=== PATIENT | male | born 1960 | race Caucasian/White ===

== ENCOUNTER 2016-09-27 10:42 | Emergency (ER) | payer OTHER ==
[~2016-09-27] VITALS: Ht 157.5 cm; Wt 86.0 kg
[2016-09-27 10:48] VITALS: Ht 157.5 cm; Wt 86.0 kg
[2016-09-27] MEDS ORDERED: SOD CHLORIDE 0.9% 1,000 ML IV ONE (14:00)
[2016-09-27] MEDS ORDERED: IBUPROFEN 600 MG TAB PO ONE (14:00)
--- NOTE | 2016-09-27 14:02 | ERD ---
ER Documentation Chief Complaint Date/Time DATE: 09/27/16 TIME: 13:59 Chief Complaint SENT BY PCP - INCREASED BLOOD SUGAR LEVEL, FEVER, INCREASED HEART RATE HPI 56-year-old man here for fever 2 days, referred by PMD for tachycardia. He denies palpitations, denies URI symptoms, no chest pain or shortness of breath, no meatal discharge, no hematuria, no abdominal pain, no vomiting or diarrhea. Patient denies recent antibiotic use or travel. ROS All systems reviewed and are negative except as per history of present illness. Medications Home Meds Active Scripts Levofloxacin* (Levaquin*) 500 Mg Tablet, 500 MG PO DAILY for 5 Days, TAB Prov:JULIANN AARON MD 09/27/16 Allergies Allergies: Coded Allergies: No Known Allergy (Unverified , 09/27/16) PMhx/Soc Hypertension, diabetes mellitus, dyslipidemia, obesity FmHx Family History: diabetes Physical Exam Vitals Vital Signs Date Time Temp Pulse Resp B/P Pulse Ox O2 Delivery O2 Flow Rate FiO2 09/27/16 15:46 95 24 121/79 96 09/27/16 14:40 99 24 119/44 96 09/27/16 10:48 100.7 125 24 127/68 96 Physical Exam GENERAL: Well-developed, well-nourished, febrile HEENT: Moist mucous membranes, pink conjunctiva, no cervical spine tenderness or step-off deformities, no goiter, no jaundice or icterus, extraocular movements intact without pain. No submandibular induration, and no pharyngeal erythema NEURO: Alert and oriented 3, cranial nerves II through XII intact bilaterally, pupils equal round reactive to light, no focal deficits or facial asymmetry, sensation intact distally Strength 5/5 in upper and lower extremities bilaterally CARDIAC: Tachycardic and regular, no murmurs rubs or gallops LUNGS: Clear bilaterally no wheezing crackles or stridor ABDOMEN: Soft nontender, no guarding, no rigidity, no rebound, no psoas sign no obturator sign. Normoactive bowel sounds SKIN: Warm and dry to touch, no abrasions, contusions, or hematomas, no lacerations, no ecchymosis, no target lesions, and without ulcers EXTREMITIES: No clubbing cyanosis or edema, calves are bilaterally symmetrical, no Homans sign, no popliteal cord sign. Distal pulses equal and bilateral PSYCH: Normal affect without agitation or irritability Result Diagram: 09/27/16 1345 09/27/16 1345 Results 24 hrs Laboratory Tests Test 09/27/16 13:40 09/27/16 13:45 Urine Color LT. YELLOW Urine Clarity CLEAR Urine pH 5.5 Urine Specific [place] 1.010 Urine Ketones TRACE Urine Nitrite NEGATIVE Urine Bilirubin NEGATIVE Urine Urobilinogen 0.2 E.U./dL Urine Leukocyte Esterase 1+ Urine Microscopic RBC 5-10/HPF Urine Microscopic WBC 10-25/HPF Urine Bacteria MODERATE Urine Hemoglobin 2+ Urine Glucose >=1000% Urine Total Protein TRACE White Blood Count 15.110^3/ul Red Blood Count 4.0410^6/ul Hemoglobin 12.0g/dl Hematocrit 35.7% Mean Corpuscular Volume 88.4fl Mean Corpuscular Hemoglobin 29.7pg Mean Corpuscular Hemoglobin Concent 33.6g/dl Red Cell Distribution Width 12.9% Platelet Count 58134^3/UL Mean Platelet Volume 9.3fl Neutrophils % 75.5% Lymphocytes % 13.4% Monocytes % 10.2% Eosinophils % 0.1% Basophils % 0.3% Nucleated Red Blood Cells % 0.0/100WBC Neutrophils # 11.410^3/ul Lymphocytes # 2.010^3/ul Monocytes # 1.510^3/ul Eosinophils # 0.010^3/ul Basophils # 0.010^3/ul Nucleated Red Blood Cells # 0.010^3/ul Prothrombin Time 14.0Sec Prothrombin Time Ratio 1.1 INR International Normalized Ratio 1.08 Activated Partial Thromboplast Time 30.1Sec Sodium Level 135mmol/L Potassium Level 4.7mmol/L Chloride Level 95mmol/L Carbon Dioxide Level 25mmol/L Anion Gap 20 Blood Urea Nitrogen 21mg/dl Creatinine 1.15mg/dl Glucose Level 303mg/dl Lactic Acid Level 1.4mmol/L Calcium Level 9.6mg/dl Total Bilirubin 0.3mg/dl Direct Bilirubin 0.00mg/dl Indirect Bilirubin 0.3mg/dl Aspartate Amino Transf (AST/SGOT) 31IU/L Alanine Aminotransferase (ALT/SGPT) 37IU/L Alkaline Phosphatase 60IU/L Troponin I 0.050ng/ml Total Protein 7.2g/dl Albumin 4.3g/dl Globulin 2.90g/dl Albumin/Globulin Ratio 1.48 Lipase 69U/L Current Medications Medications (Trade) Dose Ordered Sig/Melissa Route PRN Reason Start Time Stop Time Status Last Admin Dose Admin Sodium Chloride (NS) 1,000 ml @ 2,000 mls/hr Q30M ONCE IV 09/27/16 14:00 09/27/16 14:29 DC 09/27/16 14:03 Ibuprofen 600 mg 600 mg ONCE ONCE PO 09/27/16 14:00 09/27/16 14:01 DC 09/27/16 14:03 Ceftriaxone Sodium (Rocephin) 50 ml @ 100 mls/hr ONCE ONCE IVPB 09/27/16 15:00 09/27/16 15:29 DC 09/27/16 14:59 Insulin Human Lispro 8 unit 8 unit ONCE STAT SC 09/27/16 15:28 09/27/16 15:30 DC 09/27/16 15:39 Sodium Chloride (NS) 500 ml @ 500 mls/hr Q1H ONCE IV 09/27/16 15:30 09/27/16 16:29 09/27/16 15:37 Procedures/MDM IV line was established patient was placed on telemetry monitor rhythm strip revealed a sinus tachycardia at 110 bpm with upright P and T waves. Patient was febrile. Blood and urine cultures have been ordered results are pending I will follow-up. EKG performed, read by me revealed a sinus tachycardia at 106 bpm, left axis deviation with a right bundle branch block, QRS duration 140 ms, no concerning ST elevations or depressions noted. Chest X-ray 1V Interpreted by me: Soft Tissue: No acute abnormalities Bones: No acute abnormalities Mediastinum/Cardiac Silhouette/Lungs: No acute abnormalities I do not suspect sepsis or septic shock. I treated the patient here with 2 L normal saline intravenously, ibuprofen 600 mg p.o., lispro insulin 6 units subcutaneous injection for hyperglycemia. Lactic acid was low. CBC revealed leukocytosis of 15, electrolytes revealed dehydration with a BUN/creatinine of 21/1.2, blood sugar elevated at 303, liver function tests were normal, troponin was negative. Urine analysis was positive for infection. I treated the patient here with ceftriaxone 1 g IV. Patient defervesced and his tachycardia resolved, blood sugar improved. He has an active UTI which can be managed as an outpatient, patient feels much better and looks well. I spoke to his hospital directed physician, Dr. Paulson. We discussed the case and recommendation was for outpatient management, she agreed to coordinate care as an outpatient for him. Differential diagnoses considered, included but not limited to acute coronary syndrome, pulmonary embolism, aortic dissection, abdominal aortic aneurysm, sepsis, stroke, meningitis, encephalitis, pneumonia, appendicitis, cholecystitis , bowel obstruction, pyelonephritis, nephrolithiasis, cystitis, as well as metabolic, hematologic, and electrolyte abnormalities. As well as abscess, cellulitis, fractures, and dislocations. Patient feels much better at this time, and vital signs are normal, symptoms have improved. I did give strict instructions to return to the ED if symptoms continue or worsen, patient will otherwise follow-up with primary care physician. Patient understood instructions and agreed to plan. Disclaimer: Inadvertent spelling or grammatical errors are likely due to EHR/ dictation software use and do not reflect on the overall quality of patient care. Departure Diagnosis: Primary Impression: Hyperglycemia Additional Impressions: UTI (urinary tract infection) Urinary tract infection type: acute cystitis Hematuria presence: without hematuria Qualified Code: N30.00 - Acute cystitis without hematuria Dehydration Lymphocytosis Condition: Good JULIANN AARON MD Sep 27, 2016 14:02
[2016-09-27 14:03] LABS: ADD SCAN DIFF NO
[2016-09-27 14:05] LABS: ABNORMAL IP MESSAGE 1; BASOPHILS % 0.3 % (0.0-2.0); EOSINOPHILS % 0.1 % (0.0-7.0); HEMATOCRIT 35.7 % (42.0-52.0); LYMPHOCYTES % 13.4 % (15.0-51.0); MEAN CORPUSCULAR HEMOGLOBIN 29.7 pg (29.0-33.0); MEAN CORPUSCULAR HGB CONC 33.6 g/dl (32.0-37.0); MEAN CORPUSCULAR VOLUME 88.4 fl (82.0-101.0); MEAN PLATELET VOLUME 9.3 fl (7.4-10.4); MONOCYTE # 1.5 10^3/ul (0.3-0.9); MONOCYTES % 10.2 % (0.0-11.0); NEUTROPHIL # 11.4 10^3/ul (1.6-7.5); NEUTROPHILS % 75.5 % (39.0-77.0); PLATELET COUNT 364 10^3/UL (140-415); RED BLOOD COUNT 4.04 10^6/ul (4.70-6.10); RED CELL DISTRIBUTION WIDTH 12.9 % (11.5-14.5); WHITE BLOOD COUNT 15.1 10^3/ul (4.8-10.8)
--- NOTE | 2016-09-27 14:05 | RADRPT ---
PROCEDURE: XR Chest. CLINICAL INDICATION: chest pain, sepsis TECHNIQUE: Single frontal view of the chest was obtained COMPARISON: None FINDINGS: The heart and mediastinum are within normal limits. There is elevation of the right diaphragm. The lungs are clear. There is no pleural effusion or pneumothorax. RPTAT: AA IMPRESSION: No acute disease. .Raul Correia MD, MD Date Time Electronically viewed and signed by .Raul Correia MD, on 09/27/2016 14:05 .S/
[2016-09-27 14:07] LABS: ADD UMIC YES; URINE BILIRUBIN (Dip) NEGATIVE (NEGATIVE); URINE BLOOD (Dip) 2+ (NEGATIVE); URINE COLOR LT. YELLOW (YELLOW); URINE GLUCOSE (Dip) >=1000 % (NEGATIVE); URINE KETONES (Dip) TRACE (NEGATIVE); URINE LEUKOCYTE ESTERASE (Dip) 1+ (NEGATIVE); URINE NITRITE (Dip) NEGATIVE (NEGATIVE); URINE TOTAL PROTEIN (Dip) TRACE (NEGATIVE); URINE UROBILINOGEN (Dip) 0.2 E.U./dL (0.1-1.0)
[2016-09-27 14:16] LABS: BACTERIA,URINE MODERATE
[2016-09-27 14:21] LABS: INR 1.08; PT RATIO 1.1
[2016-09-27 14:22] LABS: PARTIAL THROMBOPLASTIN TIME 30.1 Sec (25.0-35.0)
[2016-09-27 15:00] LABS: ALBUMIN 4.3 g/dl (3.3-4.9); ALBUMIN/GLOBULIN RATIO 1.48; BILIRUBIN,INDIRECT 0.3 mg/dl (0-1.1); BILIRUBIN,TOTAL 0.3 mg/dl (0.2-1.3); CALCIUM 9.6 mg/dl (8.4-10.2); CREATININE 1.15 mg/dl (0.61-1.24); POTASSIUM 4.7 mmol/L (3.5-5.1); TOTAL PROTEIN 7.2 g/dl (6.1-8.1)
[2016-09-27] MEDS ORDERED: CEFTRIAXONE 1 GM/50 ML (PMX) 50 ML IVPB ONE (15:00)
[2016-09-27 15:12] LABS: TROPONIN-I 0.05 ng/ml (0.00-0.12)
[2016-09-27] MEDS ORDERED: LEVO500T72 PO (15:26)
[2016-09-27] MEDS ORDERED: INSULIN LISPRO 100 UNIT/ML VIAL SC STA (15:28)
[2016-09-27] MEDS ORDERED: SOD CHLORIDE 0.9% 500 ML IV ONE (15:30)
[2016-09-27 16:18] VITALS: BP 117/82; PULSE 94; RESP 20; TEMP 98.6
== END 2016-09-27 16:19 | disposition home or self-care (01) ==
LOC: E/R 10:42
DX: E11.65 Type 2 diabetes mellitus with hyperglycemia (principal); N30.00 Acute cystitis without hematuria; E86.0 Dehydration; D72.820 Lymphocytosis (symptomatic); I10 Essential (primary) hypertension; E66.9 Obesity, unspecified; R07.9 Chest pain, unspecified; Z68.34 Body mass index [BMI] 34.0-34.9, adult
CPT/HCPCS: 36415; 71010; 80053; 81001; 83605; 83690; 84484; 85025; 85610; 85730; 87040; 87086; 93005; 96372; 96374; J0696; J1815; J7030; J7040; Z7502; Z7610

== ENCOUNTER 2016-11-02 18:35 | Inpatient (IN) | payer OTHER ==
[~2016-11-02] VITALS: Ht 165.1 cm; Wt 85.0 kg
[~2016-11-02 18:35] MED LIST: LEVO500T72 PO
[2016-11-02] MEDS ORDERED: CEFEPIME 2GM/50 ML (PMX) 50 ML IVPB STA (20:12)
[2016-11-02] MEDS ORDERED: SODIUM CHLORIDE 0.9% 1L BAG IV* STA (20:12)
--- NOTE | 2016-11-02 20:35 | ERA ---
ER Documentation Chief Complaint Date/Time DATE: 11/02/16 TIME: 20:33 Chief Complaint fever for 2 weeks and hi blood sugar UTI 2 weeks ago HPI This 56-year-old male presents for feelings of frequent urination, generalized weakness, fevers and high sugar. Denies chest pain. States he does have bilateral shoulder pain going on for some time now. Was diagnosed with urinary tract infection 2 weeks ago. ROS All systems reviewed and are negative except as per history of present illness. Medications Home Meds Reported Medications [Insulin] No Conflict Check, 10 UNIT SQ QHS 11/02/16 Omeprazole* (Omeprazole*) 40 Mg Capsule.dr, 40 MG PO DAILY, #30 CAP 11/02/16 Terbinafine* (Lamisil*) 250 Mg Tablet, 250 MG PO DAILY, TAB 11/02/16 Diclofenac Sodium* (Diclofenac Sodium*) 75 Mg Tablet.dr, 75 MG PO BID, #60 TAB 11/02/16 Valsartan* (Diovan*) 80 Mg Tablet, 80 MG PO DAILY, TAB 11/02/16 Aspirin* (Aspirin* EC) 81 Mg Tablet.dr, 81 MG PO DAILY, TAB 11/02/16 Fenofibrate Nanocrystallized* (Fenofibrate*) 145 Mg Tablet, 145 MG PO DAILY, TAB 11/02/16 Losartan Potassium* (Losartan Potassium*) 100 Mg Tablet, 100 MG PO DAILY, TAB 11/02/16 Simvastatin* (Zocor*) 20 Mg Tablet, 20 MG PO DAILY, #30 TAB 11/02/16 Sitagliptin* (Januvia*) 100 Mg Tablet, 100 MG PO DAILY, #30 TAB 11/02/16 Glipizide* (Glipizide*) 10 Mg Tablet, 10 MG PO AC BREAKFAST DINNER, TAB 11/02/16 Discontinued Scripts Levofloxacin* (Levaquin*) 500 Mg Tablet, 500 MG PO DAILY for 5 Days, TAB Prov:JULIANN AARON MD 09/27/16 Allergies Allergies: Coded Allergies: No Known Allergy (Unverified , 11/02/16) PMhx/Soc History of Surgery: Yes (foot sx) Anesthesia Reaction: No Hx Neurological Disorder: No Hx Respiratory Disorders: No Hx Cardiac Disorders: No Hx Psychiatric Problems: No Hx Miscellaneous Medical Probl: Yes (Diabetes, HTN) Hx Alcohol Use: No Hx Substance Use: No Hx Tobacco Use: No Smoking Status: Never smoker Physical Exam Vitals Vital Signs Date Time Temp Pulse Resp B/P Pulse Ox O2 Delivery O2 Flow Rate FiO2 11/02/16 21:56 102.5 11/02/16 20:56 102.7 11/02/16 20:22 Nasal Cannula 11/02/16 18:58 103.6 123 24 138/70 96 Physical Exam Const: [] Mild distress Head: Atraumatic Eyes: Normal Conjunctiva ENT: Normal External Ears, Nose and Mouth. Neck: Full range of motion..~ No meningismus. Resp: Clear to auscultation bilaterally Cardio: Regular tachycardia, no murmurs Abd: Soft, non tender, non distended. Normal bowel sounds Skin: No petechiae or rashes Back: No midline or flank tenderness Ext: No cyanosis, or edema Neur: Awake and alert and oriented 3, no focal deficits Psych: Normal Mood and Affect Result Diagram: 11/02/16202311/02/162023 Results 24 hrs Laboratory Tests Test 11/02/16 20:24 White Blood Count 15.610^3/ul Red Blood Count 3.3710^6/ul Hemoglobin 9.7g/dl Hematocrit 29.7% Mean Corpuscular Volume 88.1fl Mean Corpuscular Hemoglobin 28.8pg Mean Corpuscular Hemoglobin Concent 32.7g/dl Red Cell Distribution Width 14.5% Platelet Count 04694^3/UL Mean Platelet Volume 9.4fl Neutrophils % 83.4% Lymphocytes % 8.6% Monocytes % 6.5% Eosinophils % 0.6% Basophils % 0.3% Nucleated Red Blood Cells % 0.0/100WBC Neutrophils # 13.010^3/ul Lymphocytes # 1.410^3/ul Monocytes # 1.010^3/ul Eosinophils # 0.110^3/ul Basophils # 0.010^3/ul Nucleated Red Blood Cells # 0.010^3/ul Prothrombin Time 14.3Sec Prothrombin Time Ratio 1.1 INR International Normalized Ratio 1.11 Activated Partial Thromboplast Time 39.3Sec Urine Color YELLOW Urine Clarity CLEAR Urine pH 6.0 Urine Specific [place] 1.021 Urine Ketones NEGATIVEmg/dL Urine Nitrite NEGATIVEmg/dL Urine Bilirubin NEGATIVEmg/dL Urine Urobilinogen NEGATIVEmg/dL Urine Leukocyte Esterase 1+Joyce/ul Urine Microscopic RBC 2/HPF Urine Microscopic WBC 26/HPF Urine Bacteria FEW/HPF Urine Hemoglobin 1+mg/dL Urine Glucose 3+mg/dL Urine Total Protein NEGATIVEmg/dl Sodium Level 130mmol/L Potassium Level 5.1mmol/L Chloride Level 95mmol/L Carbon Dioxide Level 26mmol/L Anion Gap 14 Blood Urea Nitrogen 26mg/dl Creatinine 1.40mg/dl Glucose Level 386mg/dl Lactic Acid Level 1.3mmol/L Calcium Level 9.7mg/dl Total Bilirubin 0.1mg/dl Direct Bilirubin 0.00mg/dl Indirect Bilirubin 0.1mg/dl Aspartate Amino Transf (AST/SGOT) 32IU/L Alanine Aminotransferase (ALT/SGPT) 39IU/L Alkaline Phosphatase 95IU/L Troponin I 0.374ng/ml Total Protein 7.9g/dl Albumin 4.3g/dl Globulin 3.60g/dl Albumin/Globulin Ratio 1.19 Current Medications Medications (Trade) Dose Ordered Sig/Melissa Route PRN Reason Start Time Stop Time Status Last Admin Dose Admin Sodium Chloride 2650 ml 2,650 ml BOLUS OVER 2 HOURS STAT IV* 11/02/16 20:12 11/02/16 20:13 DC 11/02/16 20:38 Cefepime HCl (Maxipime 2gm/50 ml (Pmx)) 50 ml @ 100 mls/hr ONCE STAT IVPB 11/02/16 20:12 11/02/16 20:41 DC 11/02/16 20:49 Acetaminophen (Tylenol Tab) 650 mg ONCE ONCE PO 11/02/16 21:00 11/02/16 21:01 DC 11/02/16 21:07 Ketorolac Tromethamine (Toradol) 30 mg ONCE ONCE IV 11/02/16 21:01 11/02/16 21:02 DC 11/02/16 21:07 Aspirin (Aspirin) 324 mg ONCE ONCE PO 11/02/16 22:30 11/02/16 22:31 DC Procedures/MDM UTI with sepsis and elevated troponin. Patient has no chest pain. Creatinine is elevated. He was given aspirin 325 mg. Is given 30 cc/kg of IV fluid as well as cefepime. Urine cultures and blood cultures are taken and pending. Patient also then complained of a mild headache. For morphine was given for all of his pain including suprapubic pain. He felt much better after this. Spoke with Dr. Alvarez will be admitting the patient to telemetry for further monitoring and troponin trending. EKG interpretation: Sinus tachycardia rate of 106, right axis deviation, right bundle branch block, posterior to T-wave changes concerning for acute ischemia because I compare this to an old EKG in which the patient has T-wave inversions in the anteroseptal leads T-wave abnormalities in inferior leads unchanged from prior. gambling monitor interpretation: Sinus tachycardia improved with fluid but not resolved. No other arrhythmias Chest x-ray interpretation: I see no acute process. I see no pneumothorax, no widened mediastinum, no infiltrate, no fracture Critical care time exactly 30 minutes: This does not include any billable procedures but does include treatment of sepsis, careful fluid administration, early antibiotic administration, multiple visits patient's bedside to reassess his status, discussion with patient family and admitting doctor. This does not include any billable procedures Departure Diagnosis: Primary Impression: Sepsis secondary to UTI Additional Impressions: Elevated troponin Renal insufficiency Normocytic anemia Condition: Serious SHAYLA ARGUETA DO Nov 02, 2016 20:35
[2016-11-02] MEDS ORDERED: ACETAMINOPHEN 325 MG TAB PO ONE (21:00)
[2016-11-02] MEDS ORDERED: KETOROLAC 30 MG INJ IV ONE (21:01)
[2016-11-02 21:02] LABS: ADD SCAN DIFF NO
[2016-11-02 21:06] LABS: BASOPHILS % 0.3 % (0.0-2.0); EOSINOPHILS # 0.1 10^3/ul (0.0-0.5); EOSINOPHILS % 0.6 % (0.0-7.0); HEMATOCRIT 29.7 % (42.0-52.0); HEMOGLOBIN 9.7 g/dl (14.0-18.0); LYMPHOCYTES # 1.4 10^3/ul (0.8-2.9); LYMPHOCYTES % 8.6 % (15.0-51.0); MEAN CORPUSCULAR HEMOGLOBIN 28.8 pg (29.0-33.0); MEAN CORPUSCULAR HGB CONC 32.7 g/dl (32.0-37.0); MEAN CORPUSCULAR VOLUME 88.1 fl (82.0-101.0); MEAN PLATELET VOLUME 9.4 fl (7.4-10.4); MONOCYTES % 6.5 % (0.0-11.0); NEUTROPHILS % 83.4 % (39.0-77.0); PLATELET COUNT 443 10^3/UL (140-415); RED BLOOD COUNT 3.37 10^6/ul (4.70-6.10); RED CELL DISTRIBUTION WIDTH 14.5 % (11.5-14.5); WHITE BLOOD COUNT 15.6 10^3/ul (4.8-10.8)
[2016-11-02 21:15] LABS: ADD UMIC YES; UR ASCORBIC ACID NEGATIVE (NEGATIVE); UR BACTERIA FEW /HPF (NONE SEEN); UR BILIRUBIN (Dip) NEGATIVE (NEGATIVE); UR BLOOD (Dip) 1+ mg/dL (NEGATIVE); UR CLARITY CLEAR (CLEAR); UR COLOR YELLOW (YELLOW); UR GLUCOSE (Dip) 3+ mg/dL (NEGATIVE); UR KETONES (Dip) NEGATIVE (NEGATIVE); UR LEUKOCYTE ESTERASE (Dip) 1+ Leu/ul (NEGATIVE); UR NITRITE (Dip) NEGATIVE (NEGATIVE); UR RBC 2 /HPF (0-5); UR SPECIFIC GRAVITY (Dip) 1.021 (1.003-1.030); UR TOTAL PROTEIN (Dip) NEGATIVE (NEGATIVE); UR UROBILINOGEN (Dip) NEGATIVE (NEGATIVE)
[2016-11-02 21:22] LABS: INR 1.11; PROTIME 14.3 Sec (12.2-14.2); PT RATIO 1.1
[2016-11-02 21:23] LABS: PARTIAL THROMBOPLASTIN TIME 39.3 Sec (25.0-35.0)
--- NOTE | 2016-11-02 21:25 | RADRPT ---
PROCEDURE: XR Chest. CLINICAL INDICATION: Possible sepsis. TECHNIQUE: Single frontal view of the chest. COMPARISON: None. FINDINGS: Cardiomegaly. Mild elevation of the right hemidiaphragm. The lungs are clear. No signs of pleural fluid or pneumothorax are seen. The osseous structures and soft tissues are unremarkable. IMPRESSION: No evidence for active cardiopulmonary disease. RPTAT: [facility] Physician Shelbi Date Time Electronically viewed and signed by Physician Shelbi on 11/02/2016 21:25 RS/
[2016-11-02 21:31] LABS: ALBUMIN 4.3 g/dl (3.3-4.9); ALBUMIN/GLOBULIN RATIO 1.19; BILIRUBIN,INDIRECT 0.1 mg/dl (0-1.1); BILIRUBIN,TOTAL 0.1 mg/dl (0.2-1.3); CALCIUM 9.7 mg/dl (8.4-10.2); CREATININE 1.4 mg/dl (0.61-1.24); POTASSIUM 5.1 mmol/L (3.5-5.1); TOTAL PROTEIN 7.9 g/dl (6.1-8.1)
[2016-11-02] MEDS ORDERED: GLIP-95 PO (21:35)
[2016-11-02] MEDS ORDERED: SITA100T8 PO (21:36)
[2016-11-02] MEDS ORDERED: SIMV20TA PO (21:36)
[2016-11-02] MEDS ORDERED: FENO145T19 PO (21:37)
[2016-11-02] MEDS ORDERED: LOSA100T7 PO (21:37)
[2016-11-02] MEDS ORDERED: ASPI-664 PO (21:37)
[2016-11-02] MEDS ORDERED: DICL75TA2 PO (21:38)
[2016-11-02] MEDS ORDERED: VALS80TA2 PO (21:38)
[2016-11-02] MEDS ORDERED: TERB250T46 PO (21:38)
[2016-11-02] MEDS ORDERED: OMEP40CA6 PO (21:39)
[2016-11-02] MEDS ORDERED: INSULIN SQ (21:40)
[2016-11-02 21:51] LABS: TROPONIN-I 0.374 ng/ml (0.00-0.12)
[2016-11-02] MEDS ORDERED: ASPIRIN 81 MG TAB PO ONE (22:30)
[2016-11-02] MEDS ORDERED: morphine 4 MG/ML VIAL IV ONE ×2 (22:53→22:58)
[2016-11-02] MEDS ORDERED: ZOLPIDEM 5 MG TAB PO PRN (23:00)
[2016-11-02] MEDS ORDERED: ONDANSETRON 4 MG INJ IV PRN (23:00)
[2016-11-02 23:50] VITALS: TEMP 99.9
[2016-11-03] VITALS (14 sets, daily range): BP systolic 107–142; BP diastolic 60–77; PULSE 85–107; RESP 18–20; Ht 165.1 cm; Wt 85.0 kg
[2016-11-03] MEDS ORDERED: DEXTROSE 50% 50 ML SYRINGE IV PRN ×2 (01:30)
[2016-11-03] MEDS ORDERED: GLUCAGON 1 MG INJ IM PRN (01:30)
[2016-11-03] MEDS ORDERED: GLUCOSE GEL 15 GRAM TUBE PO PRN ×2 (01:30)
[2016-11-03] MEDS ORDERED: GLUCOSE GEL 15 GRAM TUBE BUCCAL PRN (01:30)
[2016-11-03] MEDS: PANTOPRAZOLE (EC) 40 MG TAB PO SCH (05:20)
[2016-11-03 06:34] LABS: ADD SCAN DIFF NO
[2016-11-03] MEDS: HEPARIN 5,000 UNIT/0.5 ML VIAL SC SCH ×3 (06:35→21:29)
[2016-11-03 06:39] LABS: ABNORMAL IP MESSAGE 1; BASOPHILS % 0.2 % (0.0-2.0); EOSINOPHILS # 0.2 10^3/ul (0.0-0.5); EOSINOPHILS % 0.8 % (0.0-7.0); HEMATOCRIT 26.4 % (42.0-52.0); HEMOGLOBIN 8.7 g/dl (14.0-18.0); LYMPHOCYTES # 2.3 10^3/ul (0.8-2.9); MEAN CORPUSCULAR HEMOGLOBIN 29.3 pg (29.0-33.0); MEAN CORPUSCULAR VOLUME 88.9 fl (82.0-101.0); MONOCYTE # 1.5 10^3/ul (0.3-0.9); MONOCYTES % 7.9 % (0.0-11.0); NEUTROPHILS % 78.1 % (39.0-77.0); PLATELET COUNT 385 10^3/UL (140-415); RED BLOOD COUNT 2.97 10^6/ul (4.70-6.10); RED CELL DISTRIBUTION WIDTH 14.5 % (11.5-14.5); WHITE BLOOD COUNT 19.2 10^3/ul (4.8-10.8)
[2016-11-03 07:03] LABS: ALBUMIN 3.3 g/dl (3.3-4.9); BILIRUBIN,INDIRECT 0.3 mg/dl (0-1.1); BILIRUBIN,TOTAL 0.3 mg/dl (0.2-1.3); CALCIUM 8.6 mg/dl (8.4-10.2); CHOL/HDL RATIO 8.3 RATIO; CREATININE 1.18 mg/dl (0.61-1.24); POTASSIUM 4.4 mmol/L (3.5-5.1)
[2016-11-03] MEDS: FENOFIBRATE 145 MG TAB PO SCH (08:22)
[2016-11-03] MEDS: glipiZIDE 10 MG TAB PO SCH ×2 (08:22→17:35)
[2016-11-03] MEDS: ASPIRIN (EC) 81 MG TAB PO SCH (08:22)
[2016-11-03] MEDS: LINAGLIPTIN 5 MG TABLET PO SCH (08:23)
[2016-11-03] MEDS: LOSARTAN 50 MG TAB PO SCH (08:23)
[2016-11-03] MEDS: Insulin NOVOLOG SS MILD Algorithm (SS with meals and bedtime) SC SCH ×4 (08:25→21:31)
[2016-11-03] MEDS: ACETAMINOPHEN 325 MG TAB PO PRN ×2 (10:32→21:36)
--- NOTE | 2016-11-03 11:50 | HP ---
Date/Time of Note Date/Time of Note DATE: 11/03/16 TIME: 11:27 Assessment/Plan VTE Prophylaxis VTE Prophylaxis Intervention: heparin Lines/Catheters IV [facility] [place] [facility] Urinary Cath still in place: No Assessment/Plan Assessment/Plan 56-year-old male with: 1. Fevers, leukocytosis, signs consistent with a recurrent urinary tract infection, rule out prostatitis, rule out nephrolithiasis. CAT scan of the abdomen and pelvis has been ordered, white blood cell count is even more elevated today therefore antibiotics will be adjusted he will be started on meropenem 1 g IV every 8 hours. He is now afebrile this morning, urine cultures pending along with blood cultures. 2. Elevated troponin, very mildly, 2D echocardiogram has been done, patient does have cardiomegaly on chest x-ray. Cardiology has been consulted, cardiac enzymes are being trended, patient denies chest pain. 3. Acute kidney injury, in setting of recurrent UTI, possible obstructive uropathy. CAT scan of the abdomen and pelvis pending. IV fluids to be continued or resumed. Monitor renal function. 4. Diabetes mellitus, uncontrolled hemoglobin A1c of 12. Patient has had recurrent infection so far, continue insulin therapy will adjust to his body weight. Continue short acting insulin q. before meals and sliding scale insulin. I will double check with patient is taking oral agents. 5. Hypertension: Continue home medications. 6. Hyperlipidemia: Continue current medications. 7. Hyponatremia: IV fluid and monitor Prophylaxis: Heparin subcu for DVT prophylaxis, Protonix for GI prophylaxis Disposition: UTI workup, cardiac workup. Broad-spectrum antibiotics and IV fluids HPI/ROS Admit Date/Time Admit Date/Time Nov 02, 2016 at 22:47 Hx of Present Illness Chief complaint: Fevers History of presenting illness: This is a 56-year-old male with previous history of urinary tract infection apparently 4 weeks ago status post antibiotic treatment, diabetes mellitus, hypertension, hyperlipidemia, who presented to the emergency department sent over by his primary care physician due to concerns for recurrent fevers over the past 4 days. The patient was having fevers up to 104 at home. He denies chest pain per se but reports of diffuse myalgias and bilateral flank pain. The patient has been referred to a urologist previously due to her urinary frequency and inadequate emptying of his bladder. He is being worked up currently by urology. He reports episode of dysuria on and off. He reports that after his treatment for his urinary tract infection 4 weeks ago , he indeed recover until a 4 days ago when he started having fevers. In the emergency department as part of his workup he had cardiac enzymes checked and his troponins are slightly elevated with stable EKG and no chest pains. Echocardiogram has been done this morning and he will be evaluated by cardiology. He is on broad-spectrum antibiotic urine culture and blood cultures pending. He is afebrile this morning and feels better ROS Constitutional: no complaints Eyes: no complaints Respiratory: no complaints Cardiovascular: no complaints Genitourinary: dysuria Musculoskeletal: other (Flank pain bilaterally) Neurologic: no complaints PMH/Family/Social Past Medical History Possibly enlarged prostate Medical History: diabetes (Insulin requiring ), high cholesterol, hypertension , urinary tract infection Past Surgical History Status post bunionectomy in 2008 right foot, Status post arthroscopic left shoulder tendon repair 2016 Family History Significant Family History: no pertinent family hx Social History Alcohol Use: none Smoking Status: Never smoker Drug Use: none Exam/Review of Systems Vital Signs Vitals Vital Signs Date Time Temp Pulse Resp B/P Pulse Ox O2 Delivery O2 Flow Rate FiO2 11/03/16 08:44 100 11/03/16 07:55 99.2 18 133/77 99 11/02/16 23:50 Room Air Intake and Output 11/02/16 11/02/16 11/03/16 15:00 23:00 07:00 Intake Total 400 ml Balance 400 ml Exam Constitutional: alert, oriented, well developed Labs Result Diagram: 11/03/1662011/03/16620 Medications Medications Home medication: See medication reconciliation on admission Current Medications Ondansetron HCl (Zofran Inj) 4 mg Q6 PRN IV NAUSEA AND/OR VOMITING; Start 11/02 at 23:00 Acetaminophen (Tylenol Tab) 650 mg Q4 PRN PO FEVER Last administered on 10:32; Admin Dose 650 MG; Start 11/02/16 at 23:00 Aspirin (Halfprin) 81 mg DAILY PO Last administered on 11/03/16 08:22; Admin Dose 81 MG; Start 11/03/16 at 09:00 Fenofibrate (Tricor) 145 mg DAILY PO Last administered on 11/03/16 08:22; Admin Dose 145 MG; Start 11/03/16 at 09:00 Losartan Potassium (Cozaar) 100 mg DAILY PO Last administered on 11/03/16 08: 23; Admin Dose 100 MG; Start 11/03/16 at 09:00 Pantoprazole (Protonix Tab) 40 mg DAILY@06 PO Last administered on 11/03/16 05 :20; Admin Dose 40 MG; Start 11/03/16 at 06:00 Atorvastatin Calcium (Lipitor) 10 mg DAILY@21 PO ; Start 11/03/16 at 21:00 Linagliptin (Tradjenta) 5 mg DAILY PO Last administered on 11/03/16 08:23; Admin Dose 5 MG; Start 11/03/16 at 09:00 Insulin Glargine (Lantus) 10 unit HS SC ; Start 11/03/16 at 21:00 Miscellaneous Information 1 ea NOTE XX ; Start 11/03/16 at 01:30 Glucose (Glutose) 15 gm Q15M PRN PO DECREASED GLUCOSE; Start 11/03/16 at 01:30 Glucose (Glutose) 22.5 gm Q15M PRN PO DECREASED GLUCOSE; Start 11/03/16 at 01: 30 Dextrose (D50w Syringe) 25 ml Q15M PRN IV DECREASED GLUCOSE; Start 11/03/16 at 01:30 Dextrose (D50w Syringe) 50 ml Q15M PRN IV DECREASED GLUCOSE; Start 11/03/16 at 01:30 Glucagon (Glucagen) 1 mg Q15M PRN IM DECREASED GLUCOSE; Start 11/03/16 at 01:30 Glucose (Glutose) 15 gm Q15M PRN BUCCAL DECREASED GLUCOSE; Start 11/03/16 at 01 :30 Heparin Sodium (Porcine) (Heparin (5000 Units/0.5 ml)) 5,000 unit Q8 SC Last administered on 11/03/16 06:35; Admin Dose 5,000 UNIT; Start 11/03/16 at 06:00 Diagnostic Test (Pha) (Accu-Chek) 1 ea 02 XX ; Start 11/04/16 at 02:00 Procedures Procedures PROCEDURE: XR Chest. CLINICAL INDICATION: Possible sepsis. TECHNIQUE: Single frontal view of the chest. COMPARISON: None. FINDINGS: Cardiomegaly. Mild elevation of the right hemidiaphragm. The lungs are clear. No signs of pleural fluid or pneumothorax are seen. The osseous structures and soft tissues are unremarkable. IMPRESSION: No evidence for active cardiopulmonary disease. WALKER PAREKH Nov 03, 2016 11:38
--- NOTE | 2016-11-03 11:54 | CONS ---
Date/Time of Note Date/Time of Note DATE: 11/03/16 TIME: 11:48 Assessment/Plan Assessment/Plan Additional Assessment/Plan Sepsis likely secondary to UTI Mildly elevated troponin Diabetes, uncontrolled Hypertension -Patient with fevers and chills and urinary symptoms concerning for sepsis. Currently on antibiotics as per primary team. Troponins minimally elevated and trending down. He denies any symptoms of chest pain or shortness of breath. Elevated troponin likely secondary to sepsis. Would continue aspirin and statin therapy, start beta-samantha as blood pressure permits. Check echocardiogram. Patient with multiple risk factors for coronary artery disease but as mentioned currently asymptomatic. Would consider ischemic workup at a later time. Of importance is treatment of sepsis the current time. Consultation Date/Type/Reason Admit Date/Time Nov 02, 2016 at 22:47 Type of Consultation: cv Reason for Consultation Elevated troponin Hx of Present Illness This is a 56-year-old male with past medical history of diabetes, hypertension who presents with fevers and chills and dysuria progressing over the past 4-5 days. Symptoms have been getting worse with increased fatigue and not so he came to the emergency room. He otherwise denies any symptoms of chest discomfort or shortness of breath currently or prior to his admission. He denies exertional chest pain or shortness of breath as well. 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 Since his admission, he is feeling better with less fatigue and less chills. Denies any abdominal pain, nausea. He still complains of dysuria. 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 Exam/Review of Systems Vital Signs Vitals Vital Signs Date Time Temp Pulse Resp B/P Pulse Ox O2 Delivery O2 Flow Rate FiO2 11/03/16 11:30 98.5 101 18 123/69 96 11/02/16 23:50 Room Air Intake and Output 11/02/16 11/02/16 11/03/16 15:00 23:00 07:00 Intake Total 400 ml Balance 400 ml Exam No apparent distress Constitutional: alert, obese, oriented Head: normocephalic Neck: supple Respiratory: clear to auscultation, normal air movement Cardiovascular: other (S1s2 heard), regular rate and rhythm Gastrointestinal: bowel sounds, non-tender, other (No guarding), soft Extremities: other (No edema) Results Result Diagram: 11/03/16 0621 11/03/16 0621 Results 24 hrs Laboratory Tests Test 11/02/16 20:24 11/02/16 22:30 11/03/16 00:29 11/03/16 06:21 White Blood Count 15.6 H 19.2 #H Red Blood Count 3.37 L 2.97 L Hemoglobin 9.7 L 8.7 L Hematocrit 29.7 L 26.4 L Mean Corpuscular Volume 88.1 88.9 Mean Corpuscular Hemoglobin 28.8 L 29.3 Mean Corpuscular Hemoglobin Concent 32.7 33.0 Red Cell Distribution Width 14.5 14.5 Platelet Count 443 #H 385 Mean Platelet Volume 9.4 9.0 Neutrophils % 83.4 H 78.1 H Lymphocytes % 8.6 L 12.0 L Monocytes % 6.5 7.9 Eosinophils % 0.6 0.8 Basophils % 0.3 0.2 Nucleated Red Blood Cells % 0.0 0.0 Neutrophils # 13.0 H 15.0 H Lymphocytes # 1.4 2.3 Monocytes # 1.0 H 1.5 H Eosinophils # 0.1 0.2 Basophils # 0.0 0.0 Nucleated Red Blood Cells # 0.0 0.0 Prothrombin Time 14.3 H Prothrombin Time Ratio 1.1 INR International Normalized Ratio 1.11 Activated Partial Thromboplast Time 39.3 H Urine Color YELLOW Urine Clarity CLEAR Urine pH 6.0 Urine Specific [place] 1.021 Urine Ketones NEGATIVE Urine Nitrite NEGATIVE Urine Bilirubin NEGATIVE Urine Urobilinogen NEGATIVE Urine Leukocyte Esterase 1+ H Urine Microscopic RBC 2 Urine Microscopic WBC 26 H Urine Bacteria FEW A Urine Hemoglobin 1+ H Urine Glucose 3+ H Urine Total Protein NEGATIVE Sodium Level 130 L 129 L Potassium Level 5.1 4.4 Chloride Level 95 L 98 Carbon Dioxide Level 26 25 Anion Gap 14 10 Blood Urea Nitrogen 26 H 24 H Creatinine 1.40 H 1.18 Glucose Level 386 H 227 #H Lactic Acid Level 1.3 1.0 1.0 Calcium Level 9.7 8.6 Total Bilirubin 0.1 L 0.3 Direct Bilirubin 0.00 0.00 Indirect Bilirubin 0.1 0.3 Aspartate Amino Transf (AST/SGOT) 32 22 Alanine Aminotransferase (ALT/SGPT) 39 33 Alkaline Phosphatase 95 72 Troponin I 0.374 *H 0.422 *H 0.365 *H Total Protein 7.9 6.0 #L Albumin 4.3 3.3 # Globulin 3.60 H Albumin/Globulin Ratio 1.19 Hemoglobin A1c 12.6 H Triglycerides Level 152 H Cholesterol Level 109 LDL Cholesterol, Calculated 66 HDL Cholesterol 13 L Cholesterol/HDL Ratio 8.3 Test 11/03/16 08:21 Bedside Glucose 224 H Medications Medications Current Medications Ondansetron HCl (Zofran Inj) 4 mg Q6 PRN IV NAUSEA AND/OR VOMITING; Start 11/02 at 23:00 Acetaminophen (Tylenol Tab) 650 mg Q4 PRN PO FEVER Last administered on 10:32; Admin Dose 650 MG; Start 11/02/16 at 23:00 Aspirin (Halfprin) 81 mg DAILY PO Last administered on 11/03/16 08:22; Admin Dose 81 MG; Start 11/03/16 at 09:00 Fenofibrate (Tricor) 145 mg DAILY PO Last administered on 11/03/16 08:22; Admin Dose 145 MG; Start 11/03/16 at 09:00 Losartan Potassium (Cozaar) 100 mg DAILY PO Last administered on 11/03/16 08: 23; Admin Dose 100 MG; Start 11/03/16 at 09:00 Pantoprazole (Protonix Tab) 40 mg DAILY@06 PO Last administered on 11/03/16 05 :20; Admin Dose 40 MG; Start 11/03/16 at 06:00 Atorvastatin Calcium (Lipitor) 10 mg DAILY@21 PO ; Start 11/03/16 at 21:00 Linagliptin (Tradjenta) 5 mg DAILY PO Last administered on 11/03/16 08:23; Admin Dose 5 MG; Start 11/03/16 at 09:00 Insulin Glargine (Lantus) 10 unit HS SC ; Start 11/03/16 at 21:00 Miscellaneous Information 1 ea NOTE XX ; Start 11/03/16 at 01:30 Glucose (Glutose) 15 gm Q15M PRN PO DECREASED GLUCOSE; Start 11/03/16 at 01:30 Glucose (Glutose) 22.5 gm Q15M PRN PO DECREASED GLUCOSE; Start 11/03/16 at 01: 30 Dextrose (D50w Syringe) 25 ml Q15M PRN IV DECREASED GLUCOSE; Start 11/03/16 at 01:30 Dextrose (D50w Syringe) 50 ml Q15M PRN IV DECREASED GLUCOSE; Start 11/03/16 at 01:30 Glucagon (Glucagen) 1 mg Q15M PRN IM DECREASED GLUCOSE; Start 11/03/16 at 01:30 Glucose (Glutose) 15 gm Q15M PRN BUCCAL DECREASED GLUCOSE; Start 11/03/16 at 01 :30 Heparin Sodium (Porcine) (Heparin (5000 Units/0.5 ml)) 5,000 unit Q8 SC Last administered on 11/03/16t 06:35; Admin Dose 5,000 UNIT; Start 11/03/16 at 06:00 Diagnostic Test (Pha) 1 ea 1 ea 02 XX ; Start 11/04/16 at 02:00 Meropenem (Merrem 1 Gm/100 ml (Pmx)) 100 ml @ 200 mls/hr Q8 IVPB ; Start at 14:00; Status UNV Procedures Procedures ECG demonstrates sinus tachycardia at 106 bpm, right bundle branch block, nonspecific ST-T abnormalities Don Jose DO Nov 03, 2016 11:54
[2016-11-03] MEDS: MEROPENEM 1 GM/100 ML (PMX) 100 ML IVPB SCH ×2 (14:01→21:53)
--- NOTE | 2016-11-03 14:02 | RADRPT ---
PROCEDURE: CT Abdomen and Pelvis without contrast. CLINICAL INDICATION: Flank pain TECHNIQUE: CT of the abdomen and pelvis was performed on a multi-detector scanner without IV contr ast. Coronal and sagittal images were reformatted from the axial data set. One or more of the foll owing dose reduction techniques were used: automated exposure control, adjustment of the mA and/or k V according to patient size, use of iterative reconstruction technique. CTDI = 19.59 mGy. DLP = 127 4.63 mGy-cm. COMPARISON: None. FINDINGS: CT abdomen: The lung bases are clear. The heart size is normal, without pericardial effusion. Liver, gallbladd er, biliary tree, pancreas, spleen and adrenal glands are unremarkable. There is nonspecific mild b ilateral perinephric edema. No urolithiasis or obstructive uropathy is identified. Nonspecific sma ll gas bubble is present within the left renal lola (3-82). The stomach is grossly unremarkable. The aorta is of normal caliber. Aortic vascular calcifications are present. There is no retroperit de jesus lymphadenopathy. The damian hepatis region is clear. CT pelvis: No bowel obstruction, free intraperitoneal air or abscess is identified. Scattered colonic divertic akil are seen without diverticulitis. The appendix is well visualized and normal. There is no colit is. Mild retained fecal material may indicate constipation. Fat-containing umbilical hernia is not ed without incarceration. Urinary bladder is grossly unremarkable. No pelvic mass, free fluid or l ymphadenopathy is identified. The surrounding osseous structures are remarkable for mild degenerative enthesopathy of the spine. No osteolytic or osteoblastic lesion is detected. IMPRESSION: 1. Nonspecific bilateral perinephric edema is seen - considerations include renal failure and possi tad bilateral pyelonephritis. No urolithiasis or hydronephrosis is identified. Small gas bubble is present within a left renal lola, of uncertain etiology or significance. 2. Scattered aortoiliac atherosclerotic calcifications are present. 3. Scattered colonic diverticula are seen without diverticulitis. 4. Mild retained fecal material may indicate constipation. 5. Fat-containing umbilical hernia is seen, without incarceration. RPTAT: EE .Tomasz Mccartney MD, MD Date Time Electronically viewed and signed by .Tomasz Mccartney MD, MD on 11/03/2016 14:01 .R/
[2016-11-03] MEDS ORDERED: ATORVASTATIN 10 MG TAB PO SCH (21:00)
[2016-11-03] MEDS ORDERED: INSULIN GLARGINE [LANtus] 3 ML PEN SC SCH (21:00)
--- NOTE | 2016-11-03 21:18 | RADRPT ---
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 Physician: DEANA IQBAL Quality: Adequate Procedures: Transthoracic echocardiogram with complete 2D, M-Mode, and doppler examination. Indications: Elevated troponin. 2D/M Mode Doppler Measurement Value Normal Ranges Measurement Value Normal Ranges LVIDd 2D 4.9 3.5 - 5.6 cm AV Peak Yasmany 1.2 m/sec LVIDs 2D 3.7 2.1 - 4.1 cm AV Peak PG 5.4 mmHg LVPWd 2D 1.0 0.6 - 1.1 cm LVOT Peak Yasmany 0.9 m/sec IVSd 2D 1.1 0.6 - 1.1 cm LVOT Peak PG 3.3 mmHg AoR Diam 2D 2.5 2.0 - 3.7 cm MV E Peak Yasmany 0.8 m/sec EDV 2D 111.6 cm3 MV A Peak Yasmany 1.0 m/sec ESV 2D 50.6 cm3 MV E/A 0.8 LA Dimen 2D 3.8 2.3 - 4.0 cm MV Decel Time 90 msec MV Decel [place] 9 MV E/A 0.8 TR Peak Yasmany 2.4 m/sec TR Peak PG 22.6 mmHg RVSP 31.0 mmHg Findings Left Ventricle: Normal left ventricular systolic function. Normal left ventricular cavity size. Mild concentric left ventricular hypertrophy. Ejection fraction is visually estimated at 55 %. Tissue Doppler/Mitral Doppler indices are consistent with impaired relaxation (Stage I diastolic dysfunction). Right Ventricle: Normal right ventricular size. Normal right ventricular systolic function. Left Atrium: The left atrium is normal in size. Right Atrium: The right atrium is normal in size. Mitral Valve: Mitral valve leaflets appear mildly thickened. Mild mitral annular calcification. Mild mitral valve regurgitation. Aortic Valve: Normal appearance of the aortic valve. No significant aortic stenosis or insufficiency. Tricuspid Valve: Normal appearance of the tricuspid valve. Estimated peak PA systolic pressure 31 mmHg. There is mild tricuspid regurgitation. Pulmonic Valve: Pulmonic valve not well visualized. There is trace pulmonic regurgitation. Pericardium: Normal pericardium with no significant pericardial effusion. Aorta: Normal aortic root. IVC: Normal size and no respiratory collapse consistent with elevated right atrial pressure. Conclusions Normal left ventricular systolic function. Normal left ventricular cavity size. Mild concentric left ventricular hypertrophy. Ejection fraction is visually estimated at 55 %. Tissue Doppler/Mitral Doppler indices are consistent with impaired relaxation (Stage I diastolic dysfunction). Normal right ventricular size. Normal right ventricular systolic function. The left atrium is normal in size. The right atrium is normal in size. Mild mitral valve regurgitation. Estimated peak PA systolic pressure 31 mmHg. There is mild tricuspid regurgitation. No significant aortic stenosis or insufficiency. Normal pericardium with no significant pericardial effusion. Electronically Signed By: Don Jose 03-Nov-2016 21:18:13 -0700 Patient Name: AL DUNN Study Date: 03-Nov-2016 [id number]
[2016-11-03] MEDS: GUAIFENESIN 20 MG/ML 5ML CUP PO PRN (21:24)
[2016-11-03] MEDS: METOPROLOL 25 MG TAB PO SCH (21:27)
[2016-11-04] VITALS (12 sets, daily range): BP systolic 116–125; BP diastolic 57–97; PULSE 73–83; RESP 16–20
[2016-11-04] MEDS: ACCUCHECK AT 2AM (Patients on SS coverage) XX SCH (02:45)
[2016-11-04] MEDS: PANTOPRAZOLE (EC) 40 MG TAB PO SCH (06:23)
[2016-11-04] MEDS: MEROPENEM 1 GM/100 ML (PMX) 100 ML IVPB SCH ×2 (06:25→14:00)
[2016-11-04] MEDS: HEPARIN 5,000 UNIT/0.5 ML VIAL SC SCH ×3 (06:32→21:24)
[2016-11-04 08:08] LABS: ADD SCAN DIFF NO
[2016-11-04 08:17] LABS: BASOPHIL # 0.1 10^3/ul (0.0-0.1); BASOPHILS % 0.4 % (0.0-2.0); EOSINOPHILS # 0.2 10^3/ul (0.0-0.5); EOSINOPHILS % 1.5 % (0.0-7.0); HEMATOCRIT 26.9 % (42.0-52.0); HEMOGLOBIN 8.7 g/dl (14.0-18.0); LYMPHOCYTES # 2.6 10^3/ul (0.8-2.9); LYMPHOCYTES % 19.3 % (15.0-51.0); MEAN CORPUSCULAR HGB CONC 32.3 g/dl (32.0-37.0); MEAN CORPUSCULAR VOLUME 89.7 fl (82.0-101.0); MEAN PLATELET VOLUME 9.4 fl (7.4-10.4); MONOCYTE # 1.3 10^3/ul (0.3-0.9); MONOCYTES % 9.4 % (0.0-11.0); NEUTROPHIL # 9.3 10^3/ul (1.6-7.5); NEUTROPHILS % 68.4 % (39.0-77.0); PLATELET COUNT 434 10^3/UL (140-415); RED CELL DISTRIBUTION WIDTH 14.7 % (11.5-14.5); WHITE BLOOD COUNT 13.5 10^3/ul (4.8-10.8)
[2016-11-04] MEDS: LINAGLIPTIN 5 MG TABLET PO SCH (08:36)
[2016-11-04] MEDS: LOSARTAN 50 MG TAB PO SCH (08:36)
[2016-11-04] MEDS: ASPIRIN (EC) 81 MG TAB PO SCH (08:36)
[2016-11-04] MEDS: glipiZIDE 10 MG TAB PO SCH (08:36)
[2016-11-04] MEDS: FENOFIBRATE 145 MG TAB PO SCH (08:36)
[2016-11-04] MEDS: METOPROLOL 25 MG TAB PO SCH ×2 (08:36→21:16)
[2016-11-04] MEDS: Insulin NOVOLOG SS MILD Algorithm (SS with meals and bedtime) SC SCH ×4 (08:40→21:23)
[2016-11-04 08:41] LABS: CHOL/HDL RATIO 8.3 RATIO; MAGNESIUM 1.6 mg/dl (1.7-2.5); PHOSPHORUS 2.9 mg/dl (2.5-4.9)
[2016-11-04 09:12] LABS: ALBUMIN 3.7 g/dl (3.3-4.9); ALBUMIN/GLOBULIN RATIO 1.02; BILIRUBIN,INDIRECT 0.2 mg/dl (0-1.1); BILIRUBIN,TOTAL 0.2 mg/dl (0.2-1.3); CALCIUM 9.1 mg/dl (8.4-10.2); CREATININE 1.04 mg/dl (0.61-1.24); POTASSIUM 4.5 mmol/L (3.5-5.1); TOTAL PROTEIN 7.3 g/dl (6.1-8.1)
--- NOTE | 2016-11-04 09:39 | PN ---
Date/Time of Note Date/Time of Note DATE: 11/04/16 TIME: 09:20 Assessment/Plan VTE Prophylaxis VTE Prophylaxis Intervention: heparin Lines/Catheters IV [facility] [place] Urinary Cath still in place: No Assessment/Plan Assessment/Plan 56-year-old male with: 1. Bilateral pyelonephritis, with CT abdo/pelvis consistent with it and also Fevers, leukocytosis, blood cx NGTD, urine cx pending Afebrile, Leukocytosis improving Awaiting urine cx results for abx adjustement and d/c planning 2. Elevated troponin, very mildly, 2D echocardiogram has been done, patient does have cardiomegaly on chest x-ray. Appreciate Dr Jose's recommendations 2D echo stable Continue ASA, statins, Bblock 3. Acute kidney injury, in setting of recurrent UTI, No obstructive uropathy on CT. Renal function improving B/l pyelonephritis Continue abx. 4. Diabetes mellitus, uncontrolled hemoglobin A1c of 12. Patient has had recurrent infection so far. On Insulin Tradjenta started Holding glipizide. 5. Hypertension: Continue home medications. 6. Hyperlipidemia: Continue current medications. 7. Hyponatremia: resolving. Prophylaxis: Heparin subcu for DVT prophylaxis, Protonix for GI prophylaxis Disposition: Abx while awaiting culture results. Subjective 24 Hr Interval Summary Free Text/Dictation Patient feels better this AM, episodes of diaphoresis overnight, now resolved Afebrile Improving clinically Exam/Review of Systems Vital Signs Vitals Vital Signs Date Time Temp Pulse Resp B/P Pulse Ox O2 Delivery O2 Flow Rate FiO2 11/04/16 08:27 79 11/04/16 07:46 98.7 18 124/78 98 11/02/16 23:50 Room Air Intake and Output 11/03/16 11/03/16 11/04/16 15:00 23:00 07:00 Intake Total 770 ml 50 ml Balance 770 ml 50 ml Exam Constitutional: alert, obese, oriented, well developed Respiratory: clear to auscultation, normal air movement Cardiovascular: nl pulses, regular rate and rhythm Gastrointestinal: non-tender, soft Musculoskeletal: nl extremities to inspection Extremities: normal pulses, other (no edema, clubbing or cyanosis ) Neurological: RADIO PRODUCER II-XII intact, nl mental status, nl speech, nl strength Results Result Diagram: 11/04/16 0726 11/04/16 0729 Results 24 hrs Laboratory Tests Test 11/03/16 11:47 11/03/16 13:24 11/03/16 17:36 11/03/16 21:20 Bedside Glucose 306 H 218 266 H Troponin I 0.264 *H Test 11/04/16 02:30 11/04/16 07:26 11/04/16 07:29 11/04/16 08:34 Bedside Glucose 210 184 White Blood Count 13.5 #H Red Blood Count 3.00 L Hemoglobin 8.7 L Hematocrit 26.9 L Mean Corpuscular Volume 89.7 Mean Corpuscular Hemoglobin 29.0 Mean Corpuscular Hemoglobin Concent 32.3 Red Cell Distribution Width 14.7 H Platelet Count 434 H Mean Platelet Volume 9.4 Neutrophils % 68.4 Lymphocytes % 19.3 Monocytes % 9.4 Eosinophils % 1.5 Basophils % 0.4 Nucleated Red Blood Cells % 0.0 Neutrophils # 9.3 H Lymphocytes # 2.6 Monocytes # 1.3 H Eosinophils # 0.2 Basophils # 0.1 Nucleated Red Blood Cells # 0.0 Phosphorus Level 2.9 Magnesium Level 1.6 L Triglycerides Level 127 Cholesterol Level 108 LDL Cholesterol, Calculated 70 HDL Cholesterol 13 L Cholesterol/HDL Ratio 8.3 Sodium Level 129 L Potassium Level 4.5 Chloride Level 98 Carbon Dioxide Level 25 Anion Gap 11 Blood Urea Nitrogen 20 Creatinine 1.04 Glucose Level 194 Calcium Level 9.1 Total Bilirubin 0.2 Direct Bilirubin 0.00 Indirect Bilirubin 0.2 Aspartate Amino Transf (AST/SGOT) 48 #H Alanine Aminotransferase (ALT/SGPT) 36 Alkaline Phosphatase 87 Total Protein 7.3 # Albumin 3.7 Globulin 3.60 H Albumin/Globulin Ratio 1.02 Medications Medications Current Medications Ondansetron HCl (Zofran Inj) 4 mg Q6 PRN IV NAUSEA AND/OR VOMITING; Start 11/02 at 23:00 Acetaminophen (Tylenol Tab) 650 mg Q4 PRN PO FEVER Last administered on 21:36; Admin Dose 650 MG; Start 11/02/16 at 23:00 Aspirin (Halfprin) 81 mg DAILY PO Last administered on 11/04/16 08:36; Admin Dose 81 MG; Start 11/03/16 at 09:00 Fenofibrate (Tricor) 145 mg DAILY PO Last administered on 11/04/16 08:36; Admin Dose 145 MG; Start 11/03/16 at 09:00 Losartan Potassium (Cozaar) 100 mg DAILY PO Last administered on 11/04/16 08: 36; Admin Dose 100 MG; Start 11/03/16 at 09:00 Pantoprazole (Protonix Tab) 40 mg DAILY@06 PO Last administered on 11/04/16 06 :23; Admin Dose 40 MG; Start 11/03/16 at 06:00 Atorvastatin Calcium (Lipitor) 10 mg DAILY@21 PO Last administered on 21:24; Admin Dose 10 MG; Start 11/03/16 at 21:00 Linagliptin (Tradjenta) 5 mg DAILY PO Last administered on 11/04/16 08:36; Admin Dose 5 MG; Start 11/03/16 at 09:00 Insulin Glargine (Lantus) 10 unit HS SC Last administered on 11/03/16 21:32; Admin Dose 10 UNIT; Start 11/03/16 at 21:00 Miscellaneous Information 1 ea NOTE XX ; Start 11/03/16 at 01:30 Glucose (Glutose) 15 gm Q15M PRN PO DECREASED GLUCOSE; Start 11/03/16 at 01:30 Glucose (Glutose) 22.5 gm Q15M PRN PO DECREASED GLUCOSE; Start 11/03/16 at 01: 30 Dextrose (D50w Syringe) 25 ml Q15M PRN IV DECREASED GLUCOSE; Start 11/03/16 at 01:30 Dextrose (D50w Syringe) 50 ml Q15M PRN IV DECREASED GLUCOSE; Start 11/03/16 at 01:30 Glucagon (Glucagen) 1 mg Q15M PRN IM DECREASED GLUCOSE; Start 11/03/16 at 01:30 Glucose (Glutose) 15 gm Q15M PRN BUCCAL DECREASED GLUCOSE; Start 11/03/16 at 01 :30 Heparin Sodium (Porcine) (Heparin (5000 Units/0.5 ml)) 5,000 unit Q8 SC Last administered on 11/04/16 06:32; Admin Dose 5,000 UNIT; Start 11/03/16 at 06:00 Diagnostic Test (Pha) 1 ea 1 ea 02 XX Last administered on 11/04/16 02:45; Admin Dose 1 EA; Start 11/04/16 at 02:00 Meropenem (Merrem 1 Gm/100 ml (Pmx)) 100 ml @ 200 mls/hr Q8 IVPB Last administered on 11/04/16 06:25; Admin Dose 200 MLS/HR; Start 11/03/16 at 14:00 ; Stop 11/04/16 at 14:15 Metoprolol Tartrate (Lopressor) 25 mg BID PO Last administered on 11/04/16 08: 36; Admin Dose 25 MG; Start 11/03/16 at 21:00 Guaifenesin 100 mg 100 mg Q4H PRN PO COUGH Last administered on 11/03/16 21:24 ; Admin Dose 100 MG; Start 11/03/16 at 21:00 Meropenem/Sodium Chloride (Merrem 1 Gm/50 ml (Pmx)) 50 ml @ 100 mls/hr Q8 IVPB ; Start 11/04/16 at 22:00 Procedures Procedures PROCEDURE: CT Abdomen and Pelvis without contrast. CLINICAL INDICATION: Flank pain TECHNIQUE: CT of the abdomen and pelvis was performed on a multi-detector scanner without IV contrast. Coronal and sagittal images were reformatted from the axial data set. One or more of the following dose reduction techniques were used: automated exposure control, adjustment of the mA and/or kV according to patient size, use of iterative reconstruction technique. CTDI = 19.59 mGy. DLP = 1274.63 mGy-cm. COMPARISON: None. FINDINGS: CT abdomen: The lung bases are clear. The heart size is normal, without pericardial effusion. Liver, gallbladder, biliary tree, pancreas, spleen and adrenal glands are unremarkable. There is nonspecific mild bilateral perinephric edema. No urolithiasis or obstructive uropathy is identified. Nonspecific small gas bubble is present within the left renal lola (3-82). The stomach is grossly unremarkable. The aorta is of normal caliber. Aortic vascular calcifications are present. There is no retroperitoneal lymphadenopathy. The damian hepatis region is clear. CT pelvis: No bowel obstruction, free intraperitoneal air or abscess is identified. Scattered colonic diverticula are seen without diverticulitis. The appendix is well visualized and normal. There is no colitis. Mild retained fecal material may indicate constipation. Fat-containing umbilical hernia is noted without incarceration. Urinary bladder is grossly unremarkable. No pelvic mass, free fluid or lymphadenopathy is identified. The surrounding osseous structures are remarkable for mild degenerative enthesopathy of the spine. No osteolytic or osteoblastic lesion is detected. IMPRESSION: 1. Nonspecific bilateral perinephric edema is seen - considerations include renal failure and possibly bilateral pyelonephritis. No urolithiasis or hydronephrosis is identified. Small gas bubble is present within a left renal lola, of uncertain etiology or significance. 2. Scattered aortoiliac atherosclerotic calcifications are present. 3. Scattered colonic diverticula are seen without diverticulitis. 4. Mild retained fecal material may indicate constipation. 5. Fat-containing umbilical hernia is seen, without incarceration. RPTAT: EE .Tomasz Mccartney MD, MD Date Time Electronically viewed and signed by .Tomasz Mccartney MD, MD on 11/03/2016 14: 01 WALKER PAREKH Nov 04, 2016 09:33
[2016-11-04] MEDS ORDERED: MAGNESIUM SULFATE 2 GM/50 ML 50 ML IVPB ONE (10:00)
[2016-11-04] MEDS: INSULIN ASPART [NOVOLOG] 3 ML PEN SC SCH ×2 (11:43→17:29)
[2016-11-04] MEDS ORDERED: INSULIN GLARGINE [LANtus] 3 ML PEN SC ONE (12:00)
--- NOTE | 2016-11-04 15:17 | CONS ---
Date/Time of Note Date/Time of Note DATE: 11/04/16 TIME: 15:15 Assessment/Plan Assessment/Plan Additional Assessment/Plan Sepsis likely secondary to UTI Mildly elevated troponin Diabetes, uncontrolled Hypertension Preserved ejection fraction -Patient feeling much better. Echocardiogram with preserved ejection fraction. Antibiotics as per primary team. Continue aggressive risk factor modification with good blood pressure control, aspirin therapy, statin therapy and diabetes management.. Consultation Date/Type/Reason Admit Date/Time Nov 02, 2016 at 22:47 Initial Consult Date Type of Consultation: cv 24 HR Interval Summary Free Text/Dictation Patient denies chest pain, shortness of breath or dizziness. Feeling much better. Exam/Review of Systems Vital Signs Vitals Vital Signs Date Time Temp Pulse Resp B/P Pulse Ox O2 Delivery O2 Flow Rate FiO2 11/04/16 12:24 76 11/04/16 11:20 97.8 18 117/63 97 11/02/16 23:50 Room Air Intake and Output 11/03/16 11/03/16 11/04/16 15:00 23:00 07:00 Intake Total 770 ml 50 ml Balance 770 ml 50 ml Exam No apparent distress Constitutional: alert, obese, oriented Head: normocephalic Respiratory: other (Coarse breath sounds bilaterally, no wheezing) Cardiovascular: other (S1-S2 heard), regular rate and rhythm Gastrointestinal: bowel sounds, non-tender, other (No guarding), soft Extremities: other (No edema) Results Result Diagram: 11/04/16 0726 11/04/16 0729 Results 24 hrs Laboratory Tests Test 11/03/16 17:36 11/03/16 21:20 11/04/16 02:30 11/04/16 07:26 Bedside Glucose 218 266 H 210 White Blood Count 13.5 #H Red Blood Count 3.00 L Hemoglobin 8.7 L Hematocrit 26.9 L Mean Corpuscular Volume 89.7 Mean Corpuscular Hemoglobin 29.0 Mean Corpuscular Hemoglobin Concent 32.3 Red Cell Distribution Width 14.7 H Platelet Count 434 H Mean Platelet Volume 9.4 Neutrophils % 68.4 Lymphocytes % 19.3 Monocytes % 9.4 Eosinophils % 1.5 Basophils % 0.4 Nucleated Red Blood Cells % 0.0 Neutrophils # 9.3 H Lymphocytes # 2.6 Monocytes # 1.3 H Eosinophils # 0.2 Basophils # 0.1 Nucleated Red Blood Cells # 0.0 Phosphorus Level 2.9 Magnesium Level 1.6 L Triglycerides Level 127 Cholesterol Level 108 LDL Cholesterol, Calculated 70 HDL Cholesterol 13 L Cholesterol/HDL Ratio 8.3 Test 11/04/16 07:29 11/04/16 08:34 11/04/16 11:34 Sodium Level 129 L Potassium Level 4.5 Chloride Level 98 Carbon Dioxide Level 25 Anion Gap 11 Blood Urea Nitrogen 20 Creatinine 1.04 Glucose Level 194 Calcium Level 9.1 Total Bilirubin 0.2 Direct Bilirubin 0.00 Indirect Bilirubin 0.2 Aspartate Amino Transf (AST/SGOT) 48 #H Alanine Aminotransferase (ALT/SGPT) 36 Alkaline Phosphatase 87 Total Protein 7.3 # Albumin 3.7 Globulin 3.60 H Albumin/Globulin Ratio 1.02 Bedside Glucose 184 364 H Medications Medications Current Medications Ondansetron HCl (Zofran Inj) 4 mg Q6 PRN IV NAUSEA AND/OR VOMITING; Start 11/02 at 23:00 Acetaminophen (Tylenol Tab) 650 mg Q4 PRN PO FEVER Last administered on 21:36; Admin Dose 650 MG; Start 11/02/16 at 23:00 Aspirin (Halfprin) 81 mg DAILY PO Last administered on 11/04/16 08:36; Admin Dose 81 MG; Start 11/03/16 at 09:00 Fenofibrate (Tricor) 145 mg DAILY PO Last administered on 11/04/16 08:36; Admin Dose 145 MG; Start 11/03/16 at 09:00 Losartan Potassium (Cozaar) 100 mg DAILY PO Last administered on 11/04/16 08: 36; Admin Dose 100 MG; Start 11/03/16 at 09:00 Pantoprazole (Protonix Tab) 40 mg DAILY@06 PO Last administered on 11/04/16 06 :23; Admin Dose 40 MG; Start 11/03/16 at 06:00 Atorvastatin Calcium (Lipitor) 10 mg DAILY@21 PO Last administered on 21:24; Admin Dose 10 MG; Start 11/03/16 at 21:00 Linagliptin (Tradjenta) 5 mg DAILY PO Last administered on 11/04/16 08:36; Admin Dose 5 MG; Start 11/03/16 at 09:00 Miscellaneous Information 1 ea NOTE XX ; Start 11/03/16 at 01:30 Glucose (Glutose) 15 gm Q15M PRN PO DECREASED GLUCOSE; Start 11/03/16 at 01:30 Glucose (Glutose) 22.5 gm Q15M PRN PO DECREASED GLUCOSE; Start 11/03/16 at 01: 30 Dextrose (D50w Syringe) 25 ml Q15M PRN IV DECREASED GLUCOSE; Start 11/03/16 at 01:30 Dextrose (D50w Syringe) 50 ml Q15M PRN IV DECREASED GLUCOSE; Start 11/03/16 at 01:30 Glucagon (Glucagen) 1 mg Q15M PRN IM DECREASED GLUCOSE; Start 11/03/16 at 01:30 Glucose (Glutose) 15 gm Q15M PRN BUCCAL DECREASED GLUCOSE; Start 11/03/16 at 01 :30 Heparin Sodium (Porcine) (Heparin (5000 Units/0.5 ml)) 5,000 unit Q8 SC Last administered on 11/04/16 15:10; Admin Dose 5,000 UNIT; Start 11/03/16 at 06:00 Diagnostic Test (Pha) (Accu-Chek) 1 ea 02 XX Last administered on 11/04/16 02: 45; Admin Dose 1 EA; Start 11/04/16 at 02:00 Metoprolol Tartrate (Lopressor) 25 mg BID PO Last administered on 11/04/16 08: 36; Admin Dose 25 MG; Start 11/03/16 at 21:00 Guaifenesin 100 mg 100 mg Q4H PRN PO COUGH Last administered on 11/03/16 21:24 ; Admin Dose 100 MG; Start 11/03/16 at 21:00 Meropenem/Sodium Chloride (Merrem 1 Gm/50 ml (Pmx)) 50 ml @ 100 mls/hr Q8 IVPB ; Start 11/04/16 at 22:00 Insulin Glargine (Lantus) 16 unit HS SC ; Start 11/04/16 at 21:00 Don Jose DO Nov 04, 2016 15:17
--- NOTE | 2016-11-04 16:35 | RADRPT ---
Vent Rate: 79 bpm RR Interval: 0 msec ID Interval: 124 msec QRS Duration: 144 msec QT Interval: 380 msec QTC Interval: 435 msec P-R-T Slade: 20 - 62 - -35 degrees Normal sinus rhythm Right bundle branch block T wave abnormality, consider inferior ischemia Abnormal ECG Electronically Signed By: Don Jose [id number]
[2016-11-04] MEDS: ATORVASTATIN 20 MG TAB PO SCH (21:16)
[2016-11-04] MEDS: GUAIFENESIN 20 MG/ML 5ML CUP PO PRN (21:20)
[2016-11-04] MEDS: MEROPENEM 1 GM/50ML(PMX) 50 ML IVPB SCH (21:24)
[2016-11-04] MEDS: INSULIN GLARGINE [LANtus] 3 ML PEN SC SCH (21:34)
[2016-11-04] MEDS ORDERED: MEROPENEM 500MG/50 ML (PMX) 50 ML IVPB SCH (22:00)
[2016-11-05] VITALS (12 sets, daily range): BP systolic 95–128; BP diastolic 54–72; PULSE 69–77; RESP 16–20
[2016-11-05] MEDS: ACCUCHECK AT 2AM (Patients on SS coverage) XX SCH (02:30)
[2016-11-05] MEDS: MEROPENEM 1 GM/50ML(PMX) 50 ML IVPB SCH (05:33)
[2016-11-05] MEDS: PANTOPRAZOLE (EC) 40 MG TAB PO SCH (05:33)
[2016-11-05] MEDS: HEPARIN 5,000 UNIT/0.5 ML VIAL SC SCH ×3 (05:41→21:55)
[2016-11-05 07:57] LABS: ADD SCAN DIFF NO
[2016-11-05 08:05] LABS: BASOPHIL # 0.1 10^3/ul (0.0-0.1); BASOPHILS % 0.4 % (0.0-2.0); EOSINOPHILS # 0.3 10^3/ul (0.0-0.5); EOSINOPHILS % 2.2 % (0.0-7.0); HEMATOCRIT 28.6 % (42.0-52.0); HEMOGLOBIN 9.1 g/dl (14.0-18.0); LYMPHOCYTES # 3.4 10^3/ul (0.8-2.9); LYMPHOCYTES % 27.1 % (15.0-51.0); MEAN CORPUSCULAR HEMOGLOBIN 28.3 pg (29.0-33.0); MEAN CORPUSCULAR HGB CONC 31.8 g/dl (32.0-37.0); MEAN CORPUSCULAR VOLUME 88.8 fl (82.0-101.0); MEAN PLATELET VOLUME 9.3 fl (7.4-10.4); MONOCYTE # 1.2 10^3/ul (0.3-0.9); MONOCYTES % 9.8 % (0.0-11.0); NEUTROPHIL # 7.5 10^3/ul (1.6-7.5); NEUTROPHILS % 59.2 % (39.0-77.0); PLATELET COUNT 530 10^3/UL (140-415); RED BLOOD COUNT 3.22 10^6/ul (4.70-6.10); RED CELL DISTRIBUTION WIDTH 14.8 % (11.5-14.5); WHITE BLOOD COUNT 12.6 10^3/ul (4.8-10.8)
[2016-11-05] MEDS: FENOFIBRATE 145 MG TAB PO SCH (08:33)
[2016-11-05] MEDS: LINAGLIPTIN 5 MG TABLET PO SCH (08:33)
[2016-11-05] MEDS: ASPIRIN (EC) 81 MG TAB PO SCH (08:33)
[2016-11-05] MEDS: LOSARTAN 50 MG TAB PO SCH (08:34)
[2016-11-05] MEDS: METOPROLOL 25 MG TAB PO SCH ×2 (08:34→21:48)
[2016-11-05] MEDS: Insulin NOVOLOG SS MILD Algorithm (SS with meals and bedtime) SC SCH ×4 (08:35→21:56)
[2016-11-05] MEDS: INSULIN ASPART [NOVOLOG] 3 ML PEN SC SCH ×3 (08:36→17:14)
[2016-11-05 08:39] LABS: MAGNESIUM 1.9 mg/dl (1.7-2.5); PHOSPHORUS 3.4 mg/dl (2.5-4.9)
[2016-11-05 08:46] LABS: CALCIUM 9.2 mg/dl (8.4-10.2); CREATININE 1.11 mg/dl (0.61-1.24); POTASSIUM 4.8 mmol/L (3.5-5.1)
[2016-11-05] MEDS ORDERED: LIDOCAINE 1% (MPF) 5 ML VIAL SC ONE (11:30)
--- NOTE | 2016-11-05 11:37 | PN ---
Date/Time of Note Date/Time of Note DATE: 11/05/16 TIME: 11:21 Assessment/Plan VTE Prophylaxis VTE Prophylaxis Intervention: heparin Lines/Catheters IV [facility] (from [facility] [place] Urinary Cath still in place: No Assessment/Plan Assessment/Plan 56-year-old male with: 1. Bilateral pyelonephritis, with CT abdo/pelvis consistent with it and also Fevers, leukocytosis, blood cx NGTD, urine with ESBL E. coli. Antibiotics to be changed to Invanz, PICC line placement and anticipated discharge planning for Tuesday Afebrile, Leukocytosis improving. 2. Elevated troponin, very mildly, 2D echocardiogram has been done, patient does have cardiomegaly on chest x-ray. Stable and asymptomatic Appreciate Dr Jose's recommendations 2D echo stable Continue ASA, statins, Bblock. Appreciate recommendation from cardiology 3. Acute kidney injury, in setting of recurrent UTI, No obstructive uropathy on CT. Renal function improving B/l ESBL E. coli pyelonephritis Continue abx. 4. Diabetes mellitus, uncontrolled hemoglobin A1c of 12. Patient has had recurrent infection so far. On Insulin Tradjenta started, will resume glipizide at discharge 5. Hypertension: Continue home medications. 6. Hyperlipidemia: Continue current medications. 7. Hyponatremia: resolving. Prophylaxis: Heparin subcu for DVT prophylaxis, Protonix for GI prophylaxis Disposition: PICC line placement for outpatient IV antibiotics patient likely to need 12 more days of antibiotics for total of 2 week course Subjective 24 Hr Interval Summary Free Text/Dictation Urine culture back with ESBL E. coli, patient to remain on current antibiotic, noted to have low-grade fever overnight. He is overall doing much better, vital signs stable, laboratory data improved Exam/Review of Systems Vital Signs Vitals Vital Signs Date Time Temp Pulse Resp B/P Pulse Ox O2 Delivery O2 Flow Rate FiO2 11/05/16 08:09 97.9 73 18 128/72 98 11/02/16 23:50 Room Air Intake and Output 11/04/16 11/04/16 11/05/16 15:00 23:00 07:00 Intake Total 860 ml 450 ml Output Total 750 ml Balance 860 ml -300 ml Exam Constitutional: alert, oriented, well developed Respiratory: clear to auscultation, normal air movement Cardiovascular: nl pulses, regular rate and rhythm Gastrointestinal: non-tender, soft Musculoskeletal: nl extremities to inspection Extremities: normal pulses, other (no edema, clubbing or cyanosis ) Neurological: [employer] II-XII intact, nl mental status, nl speech, nl strength Results Result Diagram: 11/05/1637 11/05/1637 Results 24 hrs Laboratory Tests Test 11/04/16 11:34 11/04/16 17:24 11/04/16 21:01 11/05/16 02:28 Bedside Glucose 364 H 223 H 224 H 236 H Test 11/05/16 07:37 11/05/16 08:27 White Blood Count 12.6 H Red Blood Count 3.22 L Hemoglobin 9.1 L Hematocrit 28.6 L Mean Corpuscular Volume 88.8 Mean Corpuscular Hemoglobin 28.3 L Mean Corpuscular Hemoglobin Concent 31.8 L Red Cell Distribution Width 14.8 H Platelet Count 530 #H Mean Platelet Volume 9.3 Neutrophils % 59.2 Lymphocytes % 27.1 Monocytes % 9.8 Eosinophils % 2.2 Basophils % 0.4 Nucleated Red Blood Cells % 0.0 Neutrophils # 7.5 Lymphocytes # 3.4 H Monocytes # 1.2 H Eosinophils # 0.3 Basophils # 0.1 Nucleated Red Blood Cells # 0.0 Sodium Level 131 L Potassium Level 4.8 Chloride Level 98 Carbon Dioxide Level 26 Anion Gap 12 Blood Urea Nitrogen 23 H Creatinine 1.11 Glucose Level 186 Calcium Level 9.2 Phosphorus Level 3.4 Magnesium Level 1.9 Bedside Glucose 169 Medications Medications Current Medications Ondansetron HCl (Zofran Inj) 4 mg Q6 PRN IV NAUSEA AND/OR VOMITING; Start 11/02 at 23:00 Acetaminophen (Tylenol Tab) 650 mg Q4 PRN PO FEVER Last administered on 21:36; Admin Dose 650 MG; Start 11/02/16 at 23:00 Aspirin (Halfprin) 81 mg DAILY PO Last administered on 11/05/16 08:33; Admin Dose 81 MG; Start 11/03/16 at 09:00 Fenofibrate (Tricor) 145 mg DAILY PO Last administered on 11/05/16 08:33; Admin Dose 145 MG; Start 11/03/16 at 09:00 Losartan Potassium (Cozaar) 100 mg DAILY PO Last administered on 11/05/16 08: 34; Admin Dose 100 MG; Start 11/03/16 at 09:00 Pantoprazole (Protonix Tab) 40 mg DAILY@06 PO Last administered on 11/05/16 05 :33; Admin Dose 40 MG; Start 11/03/16 at 06:00 Linagliptin (Tradjenta) 5 mg DAILY PO Last administered on 11/05/16 08:33; Admin Dose 5 MG; Start 11/03/16 at 09:00 Miscellaneous Information 1 ea NOTE XX ; Start 11/03/16 at 01:30 Glucose (Glutose) 15 gm Q15M PRN PO DECREASED GLUCOSE; Start 11/03/16 at 01:30 Glucose (Glutose) 22.5 gm Q15M PRN PO DECREASED GLUCOSE; Start 11/03/16 at 01: 30 Dextrose (D50w Syringe) 25 ml Q15M PRN IV DECREASED GLUCOSE; Start 11/03/16 at 01:30 Dextrose (D50w Syringe) 50 ml Q15M PRN IV DECREASED GLUCOSE; Start 11/03/16 at 01:30 Glucagon (Glucagen) 1 mg Q15M PRN IM DECREASED GLUCOSE; Start 11/03/16 at 01:30 Glucose (Glutose) 15 gm Q15M PRN BUCCAL DECREASED GLUCOSE; Start 11/03/16 at 01 :30 Heparin Sodium (Porcine) (Heparin (5000 Units/0.5 ml)) 5,000 unit Q8 SC Last administered on 11/05/16 05:41; Admin Dose 5,000 UNIT; Start 11/03/16 at 06:00 Diagnostic Test (Pha) (Accu-Chek) 1 ea 02 XX Last administered on 11/05/16 02: 30; Admin Dose 1 EA; Start 11/04/16 at 02:00 Metoprolol Tartrate (Lopressor) 25 mg BID PO Last administered on 11/05/16 08: 34; Admin Dose 25 MG; Start 11/03/16 at 21:00 Guaifenesin 100 mg 100 mg Q4H PRN PO COUGH Last administered on 11/04/16 21:20 ; Admin Dose 100 MG; Start 11/03/16 at 21:00 Meropenem/Sodium Chloride (Merrem 1 Gm/50 ml (Pmx)) 50 ml @ 100 mls/hr Q8 IVPB Last administered on 7/14/17at 05:33; Admin Dose 100 MLS/HR; Start 11/04/16 at 22:00 Insulin Glargine (Lantus) 16 unit HS SC Last administered on 11/04/16 21:34; Admin Dose 16 UNIT; Start 11/04/16 at 21:00 Atorvastatin Calcium (Lipitor) 20 mg DAILY@21 PO Last administered on 21:16; Admin Dose 20 MG; Start 11/04/16 at 21:00 WALKER PAREKH Nov 05, 2016 11:37
[2016-11-05] MEDS: ERTAPENEM SODIUM 1 GM in SOD CHLORIDE 0.9% 100 ML IVPB SCH (12:35)
--- NOTE | 2016-11-05 12:42 | CONS ---
Date/Time of Note Date/Time of Note DATE: 11/05/16 TIME: 12:40 Assessment/Plan Assessment/Plan Additional Assessment/Plan Sepsis likely secondary to UTI Mildly elevated troponin Diabetes, uncontrolled Hypertension Preserved ejection fraction -Patient with ESBL pyonephritis requiring IV antibiotics. Blood pressure on the lower end today, would decrease dose of losartan. Would continue aspirin, statin therapy and beta-samantha as heart rate and blood pressure permits. As mentioned previously, patient denies any symptoms of chest pain or shortness of breath at rest or with exertion. Would take care of sepsis of the current time and would consider ischemic workup in the future based on his progress and symptoms. Consultation Date/Type/Reason Admit Date/Time Nov 02, 2016 at 22:47 Type of Consultation: cv 24 HR Interval Summary Free Text/Dictation Patient seen and examined. Denies shortness of breath, chest pain or dizziness. Is feeling better Exam/Review of Systems Vital Signs Vitals Vital Signs Date Time Temp Pulse Resp B/P Pulse Ox O2 Delivery O2 Flow Rate FiO2 11/05/16 12:16 71 11/05/16 11:41 98.1 17 95/54 98 11/02/16 23:50 Room Air Intake and Output 11/04/16 11/04/16 11/05/16 15:00 23:00 07:00 Intake Total 860 ml 450 ml Output Total 750 ml Balance 860 ml -300 ml Exam No apparent distress, sitting in chair Constitutional: alert, obese, oriented Head: normocephalic Respiratory: other (Coarse breath sounds bilaterally, no wheezing) Cardiovascular: other (S1-S2 heard), regular rate and rhythm Gastrointestinal: bowel sounds, non-tender, soft Extremities: edema (Trace) Results Result Diagram: 11/05/16 0737 11/05/16 0737 Results 24 hrs Laboratory Tests Test 11/04/16 17:24 11/04/16 21:01 11/05/16 02:28 11/05/16 07:37 Bedside Glucose 223 H 224 H 236 H White Blood Count 12.6 H Red Blood Count 3.22 L Hemoglobin 9.1 L Hematocrit 28.6 L Mean Corpuscular Volume 88.8 Mean Corpuscular Hemoglobin 28.3 L Mean Corpuscular Hemoglobin Concent 31.8 L Red Cell Distribution Width 14.8 H Platelet Count 530 #H Mean Platelet Volume 9.3 Neutrophils % 59.2 Lymphocytes % 27.1 Monocytes % 9.8 Eosinophils % 2.2 Basophils % 0.4 Nucleated Red Blood Cells % 0.0 Neutrophils # 7.5 Lymphocytes # 3.4 H Monocytes # 1.2 H Eosinophils # 0.3 Basophils # 0.1 Nucleated Red Blood Cells # 0.0 Sodium Level 131 L Potassium Level 4.8 Chloride Level 98 Carbon Dioxide Level 26 Anion Gap 12 Blood Urea Nitrogen 23 H Creatinine 1.11 Glucose Level 186 Calcium Level 9.2 Phosphorus Level 3.4 Magnesium Level 1.9 Test 11/05/16 08:27 11/05/16 11:58 Bedside Glucose 169 308 H Medications Medications Current Medications Ondansetron HCl (Zofran Inj) 4 mg Q6 PRN IV NAUSEA AND/OR VOMITING; Start 11/02 at 23:00 Acetaminophen (Tylenol Tab) 650 mg Q4 PRN PO FEVER Last administered on 21:36; Admin Dose 650 MG; Start 11/02/16 at 23:00 Aspirin (Halfprin) 81 mg DAILY PO Last administered on 11/05/16 08:33; Admin Dose 81 MG; Start 11/03/16 at 09:00 Fenofibrate (Tricor) 145 mg DAILY PO Last administered on 11/05/16 08:33; Admin Dose 145 MG; Start 11/03/16 at 09:00 Losartan Potassium (Cozaar) 100 mg DAILY PO Last administered on 11/05/16 08: 34; Admin Dose 100 MG; Start 11/03/16 at 09:00 Pantoprazole (Protonix Tab) 40 mg DAILY@06 PO Last administered on 11/05/16 05 :33; Admin Dose 40 MG; Start 11/03/16 at 06:00 Linagliptin (Tradjenta) 5 mg DAILY PO Last administered on 11/05/16 08:33; Admin Dose 5 MG; Start 11/03/16 at 09:00 Miscellaneous Information 1 ea NOTE XX ; Start 11/03/16 at 01:30 Glucose (Glutose) 15 gm Q15M PRN PO DECREASED GLUCOSE; Start 11/03/16 at 01:30 Glucose (Glutose) 22.5 gm Q15M PRN PO DECREASED GLUCOSE; Start 11/03/16 at 01: 30 Dextrose (D50w Syringe) 25 ml Q15M PRN IV DECREASED GLUCOSE; Start 11/03/16 at 01:30 Dextrose (D50w Syringe) 50 ml Q15M PRN IV DECREASED GLUCOSE; Start 11/03/16 at 01:30 Glucagon (Glucagen) 1 mg Q15M PRN IM DECREASED GLUCOSE; Start 11/03/16 at 01:30 Glucose (Glutose) 15 gm Q15M PRN BUCCAL DECREASED GLUCOSE; Start 11/03/16 at 01 :30 Heparin Sodium (Porcine) (Heparin (5000 Units/0.5 ml)) 5,000 unit Q8 SC Last administered on 11/05/16 05:41; Admin Dose 5,000 UNIT; Start 11/03/16 at 06:00 Diagnostic Test (Pha) (Accu-Chek) 1 ea 02 XX Last administered on 11/05/16 02: 30; Admin Dose 1 EA; Start 11/04/16 at 02:00 Metoprolol Tartrate (Lopressor) 25 mg BID PO Last administered on 11/05/16 08: 34; Admin Dose 25 MG; Start 11/03/16 at 21:00 Guaifenesin (Robitussin Liquid Cup) 100 mg Q4H PRN PO COUGH Last administered on 11/04/16 21:20; Admin Dose 100 MG; Start 11/03/16 at 21:00 Insulin Glargine (Lantus) 16 unit HS SC Last administered on 11/04/16 21:34; Admin Dose 16 UNIT; Start 11/04/16 at 21:00 Atorvastatin Calcium 20 mg 20 mg DAILY@21 PO Last administered on 11/04/16 21: 16; Admin Dose 20 MG; Start 11/04/16 at 21:00 Ertapenem/Sodium Chloride (Invanz/NS) 100 ml @ 200 mls/hr Q24H IVPB Last administered on 11/05/16 12:35; Admin Dose 200 MLS/HR; Start 11/05/16 at 12:30 Don Joes DO Nov 05, 2016 12:42
[2016-11-05] MEDS ORDERED: SOD CHLORIDE 0.9% 100 ML ONE (16:48)
--- NOTE | 2016-11-05 17:20 | RADRPT ---
PROCEDURE: XR Chest. CLINICAL INDICATION: Check PICC line position. TECHNIQUE: Single frontal view. COMPARISON: 11/02/2016. FINDINGS: There is a left arm PICC line with the tip in the mid right atrium. There is mild right basilar ate lectasis. The lungs are otherwise clear. The heart size is normal. There is no pleural effusion. There is no pneumothorax. IMPRESSION: 1. Left arm PICC line tip in mid right atrium. This should be retracted 3 cm. 2. Mild right basilar atelectasis. 3. Otherwise normal chest radiograph. RPTAT: QQ .Garret Graham MD, MD Date Time Electronically viewed and signed by .Garret Graham MD, on 11/05/2016 17:20 .R/
--- NOTE | 2016-11-05 17:21 | RADRPT ---
PROCEDURE: XR Chest. CLINICAL INDICATION: Check PICC line position. TECHNIQUE: Single frontal view. COMPARISON: Prior study done earlier the same day. FINDINGS: There is a left arm PICC line with the tip in the cavoatrial junction region. There is mild atelect asis at the right lung base, unchanged. The heart size is normal. There is no pleural effusion. There is no pneumothorax. IMPRESSION: 1. Left arm PICC line tip in satisfactory position. 2. Mild right basilar atelectasis. 3. Otherwise normal chest radiograph. RPTAT: QQ .Garret Graham MD, MD Date Time Electronically viewed and signed by .Garret Graham MD, MD on 11/05/2016 17:21 .R/
--- NOTE | 2016-11-05 18:00 | RADRPT ---
PROCEDURE: Ultrasound guidance for placement of needle in left upper extremity vein. CLINICAL INDICATION: Venous access. TECHNIQUE: Limited sonography of the left upper extremity was performed. Ultrasound images were recorded and s tored in the patient's medical record. COMPARISON: None. FINDINGS: The ultrasound images demonstrate a patent left upper extremity vein. The PICC line was inserted by the PICC line nurse. IMPRESSION: 1. Ultrasound guidance for a needle placement in a left upper extremity vein. 2. The left upper extremity vein is patent. RPTAT: QQ .Garret Graham MD, MD Date Time Electronically viewed and signed by .Garret Graham MD, MD on 11/05/2016 18:00 .R/
[2016-11-05] MEDS: ATORVASTATIN 20 MG TAB PO SCH (21:47)
[2016-11-05] MEDS: INSULIN GLARGINE [LANtus] 3 ML PEN SC SCH (21:57)
[2016-11-06] VITALS (9 sets, daily range): BP systolic 108–123; BP diastolic 56–65; PULSE 63–75; RESP 16–19
[2016-11-06] MEDS: ACCUCHECK AT 2AM (Patients on SS coverage) XX SCH (02:38)
[2016-11-06] MEDS: PANTOPRAZOLE (EC) 40 MG TAB PO SCH (05:40)
[2016-11-06] MEDS: HEPARIN 5,000 UNIT/0.5 ML VIAL SC SCH ×2 (05:46→14:35)
[2016-11-06] MEDS: LINAGLIPTIN 5 MG TABLET PO SCH (08:33)
[2016-11-06] MEDS: FENOFIBRATE 145 MG TAB PO SCH (08:33)
[2016-11-06] MEDS: ASPIRIN (EC) 81 MG TAB PO SCH (08:33)
[2016-11-06] MEDS: METOPROLOL 25 MG TAB PO SCH (08:34)
[2016-11-06] MEDS: Insulin NOVOLOG SS MILD Algorithm (SS with meals and bedtime) SC SCH ×3 (08:37→16:59)
[2016-11-06] MEDS: INSULIN ASPART [NOVOLOG] 3 ML PEN SC SCH ×2 (08:38→11:38)
[2016-11-06 08:54] LABS: ADD SCAN DIFF NO
[2016-11-06 08:55] LABS: BASOPHIL # 0.1 10^3/ul (0.0-0.1); BASOPHILS % 0.4 % (0.0-2.0); EOSINOPHILS # 0.3 10^3/ul (0.0-0.5); HEMOGLOBIN 9.5 g/dl (14.0-18.0); LYMPHOCYTES # 2.8 10^3/ul (0.8-2.9); MEAN CORPUSCULAR HEMOGLOBIN 28.3 pg (29.0-33.0); MEAN CORPUSCULAR HGB CONC 31.7 g/dl (32.0-37.0); MEAN CORPUSCULAR VOLUME 89.3 fl (82.0-101.0); MEAN PLATELET VOLUME 9.3 fl (7.4-10.4); MONOCYTES % 8.2 % (0.0-11.0); NEUTROPHILS % 65.2 % (39.0-77.0); PLATELET COUNT 583 10^3/UL (140-415); RED BLOOD COUNT 3.36 10^6/ul (4.70-6.10); RED CELL DISTRIBUTION WIDTH 14.9 % (11.5-14.5); WHITE BLOOD COUNT 12.3 10^3/ul (4.8-10.8)
[2016-11-06] MEDS ORDERED: LOSARTAN 50 MG TAB PO SCH (09:00)
[2016-11-06 09:14] LABS: CALCIUM 9.2 mg/dl (8.4-10.2); CREATININE 1.09 mg/dl (0.61-1.24)
--- NOTE | 2016-11-06 09:23 | PN ---
Date/Time of Note Date/Time of Note DATE: 11/06/16 TIME: 09:15 Assessment/Plan VTE Prophylaxis VTE Prophylaxis Intervention: heparin Lines/Catheters IV Catheter Type (from [facility]): PICC Line Central line still needed: Yes (for outpatient IV abx ) Urinary Cath still in place: No Assessment/Plan Assessment/Plan 56-year-old male with: 1. Bilateral pyelonephritis, with CT abdo/pelvis consistent with it and also Fevers, leukocytosis, blood cx NGTD, urine with ESBL E. coli. On Invanz, s/p PICC line placement yesterday and d/c home today with IV abx for 12 more days Afebrile, Leukocytosis improving. 2. Elevated troponin, very mildly, 2D echocardiogram has been done, patient does have cardiomegaly on chest x-ray. Stable and asymptomatic Appreciate Dr Jose's recommendations 2D echo stable Continue ASA, statins, Bblock. Appreciate recommendation from cardiology, follow up with Cardiology outpatient. 3. Acute kidney injury, in setting of recurrent UTI, No obstructive uropathy on CT. Renal function improving B/l ESBL E. coli pyelonephritis Continue abx. 4. Diabetes mellitus, uncontrolled hemoglobin A1c of 12. Patient has had recurrent infection so far. On Insulin Tradjenta started, will resume glipizide at discharge 5. Hypertension: Continue home medications. 6. Hyperlipidemia: Continue current medications. 7. Hyponatremia: resolving. Prophylaxis: Heparin subcu for DVT prophylaxis, Protonix for GI prophylaxis Disposition: D/c Home with PICC line for outpatient IV Invanz for 12 more for total of 2 week course Subjective 24 Hr Interval Summary Free Text/Dictation Patient doing well and PICC line placed yesterday No complaints and afebrile for 36hrs at least Exam/Review of Systems Vital Signs Vitals Vital Signs Date Time Temp Pulse Resp B/P Pulse Ox O2 Delivery O2 Flow Rate FiO2 11/06/16 08:24 98.0 70 18 123/59 98 11/02/16 23:50 Room Air Intake and Output 11/05/16 11/05/16 11/06/16 15:00 23:00 07:00 Intake Total 920 ml 650 ml Balance 920 ml 650 ml Exam Constitutional: alert, oriented, well developed Respiratory: clear to auscultation, normal air movement Cardiovascular: nl pulses, regular rate and rhythm Gastrointestinal: non-tender, soft Musculoskeletal: nl extremities to inspection Extremities: normal pulses Neurological: [employer] II-XII intact, nl mental status, nl speech, nl strength Results Result Diagram: 11/06/16 0814 11/05/16 0737 Results 24 hrs Laboratory Tests Test 11/05/16 11:58 11/05/16 16:56 11/05/16 21:34 11/06/16 02:25 Bedside Glucose 308 H 240 H 207 209 Test 11/06/16 08:14 11/06/16 08:35 White Blood Count 12.3 H Red Blood Count 3.36 L Hemoglobin 9.5 L Hematocrit 30.0 L Mean Corpuscular Volume 89.3 Mean Corpuscular Hemoglobin 28.3 L Mean Corpuscular Hemoglobin Concent 31.7 L Red Cell Distribution Width 14.9 H Platelet Count 583 H Mean Platelet Volume 9.3 Neutrophils % 65.2 Lymphocytes % 23.0 Monocytes % 8.2 Eosinophils % 2.0 Basophils % 0.4 Nucleated Red Blood Cells % 0.0 Neutrophils # 8.0 H Lymphocytes # 2.8 Monocytes # 1.0 H Eosinophils # 0.3 Basophils # 0.1 Nucleated Red Blood Cells # 0.0 Bedside Glucose 211 Medications Medications Current Medications Ondansetron HCl (Zofran Inj) 4 mg Q6 PRN IV NAUSEA AND/OR VOMITING; Start 11/02 at 23:00 Acetaminophen (Tylenol Tab) 650 mg Q4 PRN PO FEVER Last administered on 21:36; Admin Dose 650 MG; Start 11/02/16 at 23:00 Aspirin (Halfprin) 81 mg DAILY PO Last administered on 11/06/16 08:33; Admin Dose 81 MG; Start 11/03/16 at 09:00 Fenofibrate (Tricor) 145 mg DAILY PO Last administered on 11/06/16 08:33; Admin Dose 145 MG; Start 11/03/16 at 09:00 Pantoprazole (Protonix Tab) 40 mg DAILY@06 PO Last administered on 11/06/16 05 :40; Admin Dose 40 MG; Start 11/03/16 at 06:00 Linagliptin (Tradjenta) 5 mg DAILY PO Last administered on 11/06/16 08:33; Admin Dose 5 MG; Start 11/03/16 at 09:00 Miscellaneous Information 1 ea NOTE XX ; Start 11/03/16 at 01:30 Glucose (Glutose) 15 gm Q15M PRN PO DECREASED GLUCOSE; Start 11/03/16 at 01:30 Glucose (Glutose) 22.5 gm Q15M PRN PO DECREASED GLUCOSE; Start 11/03/16 at 01: 30 Dextrose (D50w Syringe) 25 ml Q15M PRN IV DECREASED GLUCOSE; Start 11/03/16 at 01:30 Dextrose (D50w Syringe) 50 ml Q15M PRN IV DECREASED GLUCOSE; Start 11/03/16 at 01:30 Glucagon (Glucagen) 1 mg Q15M PRN IM DECREASED GLUCOSE; Start 11/03/16 at 01:30 Glucose (Glutose) 15 gm Q15M PRN BUCCAL DECREASED GLUCOSE; Start 11/03/16 at 01 :30 Heparin Sodium (Porcine) (Heparin (5000 Units/0.5 ml)) 5,000 unit Q8 SC Last administered on 11/06/16 05:46; Admin Dose 5,000 UNIT; Start 11/03/16 at 06:00 Diagnostic Test (Pha) (Accu-Chek) 1 ea 02 XX Last administered on 11/06/16 02: 38; Admin Dose 1 EA; Start 11/04/16 at 02:00 Metoprolol Tartrate (Lopressor) 25 mg BID PO Last administered on 11/06/16 08: 34; Admin Dose 25 MG; Start 11/03/16 at 21:00 Guaifenesin (Robitussin Liquid Cup) 100 mg Q4H PRN PO COUGH Last administered on 11/04/16 21:20; Admin Dose 100 MG; Start 11/03/16 at 21:00 Insulin Glargine (Lantus) 16 unit HS SC Last administered on 11/05/16 21:57; Admin Dose 16 UNIT; Start 11/04/16 at 21:00 Atorvastatin Calcium 20 mg 20 mg DAILY@21 PO Last administered on 11/05/16 21: 47; Admin Dose 20 MG; Start 11/04/16 at 21:00 Ertapenem/Sodium Chloride (Invanz/NS) 100 ml @ 200 mls/hr Q24H IVPB Last administered on 11/05/16 12:35; Admin Dose 200 MLS/HR; Start 11/05/16 at 12:30 Losartan Potassium (Cozaar) 50 mg DAILY PO Last administered on 11/06/16t 08:46 ; Admin Dose 50 MG; Start 11/06/16 at 09:00 IV Flush (NS 10 ml) 10 ml PRN PRN IV IV PROTOCOL; Start 11/05/16 at 17:00 WALKER PAREKH Nov 06, 2016 09:22
--- NOTE | 2016-11-06 09:25 | PDOCDIS ---
Discharge Instructions CONDITION Patient Condition: Good HOME CARE INSTRUCTIONS: Special Diet: 1800 deejay ADA ACTIVITY: Activity Restrictions: Rest between Activity FOLLOW UP/APPOINTMENTS Follow-up Plan Follow up with PCP within 1 week Follow up with Cardiology in 2 weeks SCHOOL/WORK RELEASE May return to School/Work on: Nov 22, 2016 WALKER PAREKH Nov 06, 2016 09:25
[2016-11-06 09:28] LABS: POTASSIUM 5.2 mmol/L (3.5-5.1)
[2016-11-06] MEDS ORDERED: NOVO3I SC (09:32)
[2016-11-06] MEDS ORDERED: LOSA50TA2 PO (09:32)
[2016-11-06] MEDS ORDERED: LANT3I SC (09:32)
[2016-11-06] MEDS ORDERED: METO-448 PO (09:32)
[2016-11-06] MEDS ORDERED: ERTA1VIA IV (09:35)
--- NOTE | 2016-11-06 10:22 | PN ---
Date/Time of Note Date/Time of Note DATE: 11/06/16 TIME: 10:20 Assessment/Plan VTE Prophylaxis VTE Prophylaxis Intervention: SCD's Lines/Catheters IV Catheter Type (from Nrs): PICC Line Central line still needed: No Urinary Cath still in place: No Assessment/Plan Assessment/Plan Sepsis likely secondary to UTI Mildly elevated troponin Diabetes, uncontrolled Hypertension Preserved ejection fraction -Patient with ESBL pyonephritis requiring IV antibiotics. Would continue aspirin, statin therapy and beta-samantha as heart rate and blood pressure permits. As mentioned previously, patient denies any symptoms of chest pain or shortness of breath at rest or with exertion. Would take care of sepsis of the current time and would consider ischemic workup in the future based on his progress and symptoms -[facility] in am if patient still her Subjective 24 Hr Interval Summary Free Text/Dictation The patient is stable Exam/Review of Systems Vital Signs Vitals Vital Signs Date Time Temp Pulse Resp B/P Pulse Ox O2 Delivery O2 Flow Rate FiO2 11/06/16 08:24 98.0 70 18 123/59 98 11/02/16 23:50 Room Air Intake and Output 11/05/16 11/05/16 11/06/16 15:00 23:00 07:00 Intake Total 920 ml 650 ml Balance 920 ml 650 ml Results Result Diagram: 11/06/16 0814 11/06/1614 Results 24 hrs Laboratory Tests Test 11/05/16 11:58 11/05/16 16:56 11/05/16 21:34 11/06/16 02:25 Bedside Glucose 308 H 240 H 207 209 Test 11/06/16 08:14 11/06/16 08:35 White Blood Count 12.3 H Red Blood Count 3.36 L Hemoglobin 9.5 L Hematocrit 30.0 L Mean Corpuscular Volume 89.3 Mean Corpuscular Hemoglobin 28.3 L Mean Corpuscular Hemoglobin Concent 31.7 L Red Cell Distribution Width 14.9 H Platelet Count 583 H Mean Platelet Volume 9.3 Neutrophils % 65.2 Lymphocytes % 23.0 Monocytes % 8.2 Eosinophils % 2.0 Basophils % 0.4 Nucleated Red Blood Cells % 0.0 Neutrophils # 8.0 H Lymphocytes # 2.8 Monocytes # 1.0 H Eosinophils # 0.3 Basophils # 0.1 Nucleated Red Blood Cells # 0.0 Sodium Level 137 Potassium Level 5.2 H Chloride Level 99 Carbon Dioxide Level 24 Anion Gap 19 H Blood Urea Nitrogen 22 H Creatinine 1.09 Glucose Level 224 H Calcium Level 9.2 Magnesium Level 1.6 L Bedside Glucose 211 Medications Medications Current Medications Ondansetron HCl (Zofran Inj) 4 mg Q6 PRN IV NAUSEA AND/OR VOMITING; Start 11/02 at 23:00 Acetaminophen (Tylenol Tab) 650 mg Q4 PRN PO FEVER Last administered on 21:36; Admin Dose 650 MG; Start 11/02/16 at 23:00 Aspirin (Halfprin) 81 mg DAILY PO Last administered on 11/06/16 08:33; Admin Dose 81 MG; Start 11/03/16 at 09:00 Fenofibrate (Tricor) 145 mg DAILY PO Last administered on 11/06/16 08:33; Admin Dose 145 MG; Start 11/03/16 at 09:00 Pantoprazole (Protonix Tab) 40 mg DAILY@06 PO Last administered on 11/06/16 05 :40; Admin Dose 40 MG; Start 11/03/16 at 06:00 Linagliptin (Tradjenta) 5 mg DAILY PO Last administered on 11/06/16 08:33; Admin Dose 5 MG; Start 11/03/16 at 09:00 Miscellaneous Information 1 ea NOTE XX ; Start 11/03/16 at 01:30 Glucose (Glutose) 15 gm Q15M PRN PO DECREASED GLUCOSE; Start 11/03/16 at 01:30 Glucose (Glutose) 22.5 gm Q15M PRN PO DECREASED GLUCOSE; Start 11/03/16 at 01: 30 Dextrose (D50w Syringe) 25 ml Q15M PRN IV DECREASED GLUCOSE; Start 11/03/16 at 01:30 Dextrose (D50w Syringe) 50 ml Q15M PRN IV DECREASED GLUCOSE; Start 11/03/16 at 01:30 Glucagon (Glucagen) 1 mg Q15M PRN IM DECREASED GLUCOSE; Start 11/03/16 at 01:30 Glucose (Glutose) 15 gm Q15M PRN BUCCAL DECREASED GLUCOSE; Start 11/03/16 at 01 :30 Heparin Sodium (Porcine) (Heparin (5000 Units/0.5 ml)) 5,000 unit Q8 SC Last administered on 11/06/16 05:46; Admin Dose 5,000 UNIT; Start 11/03/16 at 06:00 Diagnostic Test (Pha) (Accu-Chek) 1 ea 02 XX Last administered on 11/06/16 02: 38; Admin Dose 1 EA; Start 11/04/16 at 02:00 Metoprolol Tartrate (Lopressor) 25 mg BID PO Last administered on 11/06/16 08: 34; Admin Dose 25 MG; Start 11/03/16 at 21:00 Guaifenesin (Robitussin Liquid Cup) 100 mg Q4H PRN PO COUGH Last administered on 11/04/16 21:20; Admin Dose 100 MG; Start 11/03/16 at 21:00 Insulin Glargine (Lantus) 16 unit HS SC Last administered on 11/05/16 21:57; Admin Dose 16 UNIT; Start 11/04/16 at 21:00 Atorvastatin Calcium 20 mg 20 mg DAILY@21 PO Last administered on 11/05/16 21: 47; Admin Dose 20 MG; Start 11/04/16 at 21:00 Ertapenem/Sodium Chloride (Invanz/NS) 100 ml @ 200 mls/hr Q24H IVPB Last administered on 11/05/16 12:35; Admin Dose 200 MLS/HR; Start 11/05/16 at 12:30 Losartan Potassium (Cozaar) 50 mg DAILY PO Last administered on 11/06/16 08:46 ; Admin Dose 50 MG; Start 11/06/16 at 09:00 IV Flush 10 ml 10 ml PRN PRN IV IV PROTOCOL; Start 11/05/16 at 17:00 Magnesium Sulfate (Magnesium Sulfate 2 Gm/50 ml) 50 ml @ 25 mls/hr ONCE ONCE IVPB ; Start 11/06/16 at 10:30; Stop 11/06/16 at 12:29 REGINO TATE MD Nov 06, 2016 10:22
[2016-11-06] MEDS ORDERED: MAGNESIUM SULFATE 2 GM/50 ML 50 ML IVPB ONE (10:30)
[2016-11-06] MEDS: ERTAPENEM SODIUM 1 GM in SOD CHLORIDE 0.9% 100 ML IVPB SCH (11:39)
== END 2016-11-06 17:15 | disposition home or self-care (01) | DRG 872 ==
LOC: E/R 18:35 → MS4 22:47
PROVIDERS: ADMIT Internal Medicine; ATTEND Internal Medicine
PROC: 02HV33Z Insertion of Infusion Device into Superior Vena Cava, Percutaneous Approach (ICD-10-PCS; principal; 2016-11-05)
DX: A41.9 Sepsis, unspecified organism (principal); N17.9 Acute kidney failure, unspecified; E87.1 Hypo-osmolality and hyponatremia; E11.65 Type 2 diabetes mellitus with hyperglycemia; N39.0 Urinary tract infection, site not specified; N12 Tubulo-interstitial nephritis, not specified as acute or chronic; I10 Essential (primary) hypertension; E78.5 Hyperlipidemia, unspecified; R51 Headache; B96.20 Unspecified Escherichia coli [E. coli] as the cause of diseases classified elsewhere
CPT/HCPCS: 36415; 36569; 71010; 74176; 76937; 80048; 80053; 80061; 80076; 81001; 82962; 83036; 83605; 83735; 84100; 84132; 84484; 85025; 85610; 85730; 87040; 87086; 93005; 93306; 96374; 96375; C1769; J0692; J1335; J1644; J1815; J1885; J2185; J2270; J3475; J7030

== ENCOUNTER 2016-11-20 00:06 | Emergency (ER) | payer OTHER ==
[~2016-11-20] VITALS: Ht 157.5 cm; Wt 88.0 kg
[~2016-11-20 00:06] MED LIST changes: +ASPI-664 PO; +ERTA1VIA IV; +FENO145T19 PO; +GLIP-95 PO; +LANT3I SC; -LEVO500T72 PO; +LOSA50TA2 PO; +METO-448 PO; +NOVO3I SC; +OMEP40CA6 PO; +SIMV20TA PO; +SITA100T8 PO; +TERB250T46 PO
[2016-11-20 00:17] VITALS: Ht 157.5 cm; Wt 88.0 kg
--- NOTE | 2016-11-20 00:36 | ERD ---
ER Documentation Chief Complaint Date/Time DATE: 11/20/16 TIME: 00:34 Chief Complaint finished atb yesterday, now wants picc line left upper arm removed HPI This is a 56-year-old male who presents to the emergency room for evaluation of a PICC line removal. This patient was administered antibiotics through PICC line due to urinary tract infection which caused sepsis. The patient finished his course of antibiotics yesterday. The patient has had no fever, no bleeding from the site and came to the ER for routine removal. He does state he has an appointment with his primary care physician, Dr. Pérez next week. ROS All systems reviewed and are negative except as per history of present illness. Medications Home Meds Active Scripts Ertapenem Sodium (Invanz) 1 Gm Vial.port, 1 GM IV DAILY for 12 Days Prov:WALKER PAREKH 11/06/16 Insulin Aspart* (Novolog Insulin Pen*) 100 Unit/Ml Soln, 5 UNIT SC WITH MEALS for 30 Days, 3 Refills Prov:Destiny PAREKH11/06/16 Insulin Glargine* (Lantus*) 100 Unit/Ml Soln, 16 UNIT SC HS for 30 Days, 3 Refills Prov:Destiny PAREKHYANY 11/06/16 Metoprolol Tartrate* (Lopressor*) 25 Mg Tab, 25 MG PO BID for 30 Days, TAB 3 Refills Prov:Destiny PAREKHBRADY 11/06/16 Losartan Potassium* (Cozaar*) 50 Mg Tablet, 50 MG PO DAILY for 30 Days, TAB 3 Refills Prov:WALKER PAREKH 11/06/16 Reported Medications Omeprazole* (Omeprazole*) 40 Mg Capsule.dr, 40 MG PO DAILY, #30 CAP 11/02/16 Terbinafine* (Lamisil*) 250 Mg Tablet, 250 MG PO DAILY, TAB 11/02/16 Aspirin* (Aspirin* EC) 81 Mg Tablet.dr, 81 MG PO DAILY, TAB 11/02/16 Fenofibrate Nanocrystallized* (Fenofibrate*) 145 Mg Tablet, 145 MG PO DAILY, TAB 11/02/16 Simvastatin* (Zocor*) 20 Mg Tablet, 20 MG PO DAILY, #30 TAB 11/02/16 Sitagliptin* (Januvia*) 100 Mg Tablet, 100 MG PO DAILY, #30 TAB 11/02/16 Glipizide* (Glipizide*) 10 Mg Tablet, 10 MG PO AC BREAKFAST DINNER, TAB 11/02/16 Allergies Allergies: Coded Allergies: No Known Allergy (Unverified , 11/20/16) PMhx/Soc History of Surgery: Yes (RIGHT SHOULDER SX (UNKNOWN) LAST YEAR 2015) Anesthesia Reaction: No Hx Neurological Disorder: No Hx Respiratory Disorders: No Hx Psychiatric Problems: No Hx Alcohol Use: No Hx Substance Use: No Hx Tobacco Use: No Smoking Status: Never smoker Physical Exam Vitals Vital Signs Date Time Temp Pulse Resp B/P Pulse Ox O2 Delivery O2 Flow Rate FiO2 11/20/16 00:17 98.5 81 20 141/66 97 Physical Exam Const: No acute distress Head: Atraumatic Eyes: Normal Conjunctiva ENT: Normal External Ears, Nose and Mouth. Neck: Full range of motion..~ No meningismus. Resp: Clear to auscultation bilaterally Cardio: Regular rate and rhythm, no murmurs Abd: Soft, non tender, non distended. Normal bowel sounds Skin: Left PICC line, no petechiae or rashes Back: No midline or flank tenderness Ext: No cyanosis, or edema Neur: Awake and alert Psych: Normal Mood and Affect Procedures/MDM My PICC line removal note: PICC line removed by myself without difficulty. This is a 36-year-old male presents to the ER for evaluation of PICC line removal. The patient was on antibiotics and he does not know which one. He does a finishes antibiotics yesterday. I have looked at the patient's medical record and he was prescribed antibiotics for UTI with sepsis. The patient has had no fever and stated he called his home health nurse multiple times however she has not been able to accommodate him for removal. I removed the PICC line without difficulty and the patient will be discharged at this time Departure Diagnosis: Primary Impression: PIC line (peripherally inserted central catheter) removal Condition: Stable DONAVON MANCERA DO Nov 20, 2016 00:36
[2016-11-20 00:41] VITALS: BP 138/86; PULSE 88; RESP 17; TEMP 98
== END 2016-11-20 00:43 | disposition home or self-care (01) ==
LOC: E/R 00:06
DX: Z45.2 Encounter for adjustment and management of vascular access device (principal); E11.9 Type 2 diabetes mellitus without complications; Z79.82 Long term (current) use of aspirin; Z79.84 Long term (current) use of oral hypoglycemic drugs; Z79.4 Long term (current) use of insulin
CPT/HCPCS: 99282

== ENCOUNTER → 2016-12-07 | Outpatient (CLI) | payer OTHER | END | disposition home or self-care (01) | LOC: DIB 13:52 | PROVIDERS: ATTEND Emergency Medicine | DX: Z02.9 Encounter for administrative examinations, unspecified (principal) ==